=== PATIENT | male | born 1985 | race Caucasian/White ===

== ENCOUNTER 2018-01-02 13:06 | Inpatient (IN) | payer OTHER, SELFPAY ==
[2018-01-02] VITALS (25 sets, daily range): BP systolic 91–156; BP diastolic 46–99; PULSE 64–100; RESP 12–17; TEMP 36.5–36.9; O2SAT 96–100; BMI 29.8; BMI 23.4
--- NOTE | 2018-01-02 11:55 | RAD_ITS ---
STUDY: X-RAY - ABDOMEN/PELVIS REASON FOR EXAM: Male, 32 years old. Orogastric tube placement. TECHNIQUE: Frontal abdomen. COMPARISON: None. FINDINGS: Orogastric tube is curled about within the gastric fundus. Lung bases clear with normal cardiac silhouette. Upper abdominal soft tissues unremarkable. Osseous structures exhibit no acute process. Old left-sided rib fractures. RAD/Abdomen Single View (Portable) IMPRESSION: The orogastric tube is coiled about within the gastric fundus. Electronically Signed: Mati Mccloud, at 15:04 EDT Tel , Service support ,
[2018-01-02] MEDS: Etomidate 20 MG/10 ML Vial IV (13:12)
[2018-01-02] MEDS: Rocuronium Bromide 50 MG/5 ML Vial 100 MG IV (13:12)
--- NOTE | 2018-01-02 13:16 | EKG12_ITS ---
Test Reason : OD Blood Pressure : / mmHG Vent. Rate : 094 BPM Atrial Rate : 094 BPM P-R Int : 156 ms QRS Dur : 094 ms QT Int : 386 ms P-R-T Axes : 057 095 062 degrees QTc Int : 482 ms Normal sinus rhythm Prolonged QT Abnormal ECG Confirmed by NEVAEH ANDRADE, MALU ([id number]), photographic editor KIERRA TONEY ([id number]) on 01/05/2018 3:11:23 PM Referred By: DEBRA Confirmed By:MALU HERRING MD
--- NOTE | 2018-01-02 13:16 | CT_ITS ---
STUDY: CT BRAIN WITHOUT CONTRAST REASON FOR EXAM: Male, 32 years old. Altered mental status, overdose, unresponsive, intubated. RADIATION DOSAGE (If Supplied By Facility): CTDIvol = ( 44.99 ) mGy, DLP = ( 812.98 ) mGycm TECHNIQUE: Transaxial CT imaging of the brain was performed without administration of intravenous contrast material. Coronal and sagittal 2-D MPR Individualized dose optimization techniques were used for this CT. COMPARISON: None. FINDINGS: Extracranial soft tissues including orbital contents exhibit no acute abnormality. Craniofacial osseous structures within the field of view exhibit no acute abnormality. Mild mucoperiosteal thickening in the bilateral anterior ethmoid sinuses, paranasal sinuses otherwise clear. Mastoid air cells and middle ear cavities clear. Normal size ventricles and extra-axial spaces for the patient's age. Normal pituitary, brainstem and cerebellum There is no acute intracranial bleed, mass or mass effect nor any specific evidence of acute territorial infarct. CT/Brain/Head without Contrast IMPRESSION: No acute intracranial process. Electronically Signed: Mati Mccloud, at 14:48 EDT Tel , Service support ,
--- NOTE | 2018-01-02 13:24 | ED.DCSUM_ITS ---
- ER Visit Summary Date of Service: 01/02/18 Chief Complaint: Suicide attempt History of Present Illness: The patient is a 32 M presents to the emergency department by zeus. Apparently, the patient had been voicing suicidal thoughts to his mother. The patient is on Seroquel and Xanax. She approximated that he took 47 0.5 mg Xanax this morning. She did call squad. He had also admitted to drinking. By the time maritza arrived, the patient did ambulate to the caught, but became increasingly obtunded in route. By the time he arrived here, the patient is significantly obtunded. He is nonverbal. He does not respond to painful stimuli. No other history is able to be gathered. He does have prior suicide attempt. The patient had actually left a suicide note. That said you got it, God. I am finally . Fuck you God. Physical Examination: Patient initially has a GCS of 6. He is no evidence of external trauma. His pupils are dilated but reactive. He has no gag reflex. Lung sounds are coarse. Abdomen is soft. Extremities show no edema. There is no rash. He has no evidence of self-inflicted wounds. Test Results: [] Emergency Department Course and Treatment: Patient presents markedly obtunded status post large ingestion of benzodiazepines and alcohol. He has no gag reflex. He is not protecting his airway. Decision was made to intubate the patient. The patient was intubated with an 8 oh tube. X-ray does confirm good tube placement. Screening labs are obtained which are unremarkable. I did obtain an ABG which was also unremarkable. His alcohol was elevated at 0.353. His tox is positive for benzodiazepines. I did discuss plan of care with Dr. Medina in the intensive care unit. He does agree with plan for admission to the ICU. Patient's acetaminophen and salicylate levels were both negative. His head CT was obtained. The patient will be admitted to the ICU. Treatment Plan: [] Disposition: Admission Impression: 1. Intentional overdose 2. Acute respiratory failure secondary to intentional overdose 3. Alcohol abuse This note was generated with [employer] software. It may contain incorrect words, spelling, and punctuation that were not noted in review of the chart prior to signing ED Disposition - Plan for ED Patient: Chief Complaint: Substance Abuse Referrals: Deonte Meneses DO [Primary Care Provider] -
--- NOTE | 2018-01-02 13:24 | NURSING ---
NO OLD EKGS
[2018-01-02 13:30] LABS: Absolute Lymphocyte Count 1.94 X10^3/ul (0.83-4.51); Absolute Neutrophil Count 1.6 X10^3/uL (2.0-7.7); Basophil# 0.06 X10^3/uL; Basophil% 1.5 % (0-1); Eosinophil# 0.06 X10^3/uL; Eosinophils% 1.5 % (0-5); Hematocrit 40.4 % (40-54); Hemoglobin 12.6 g/dl (13.0-16.5); Lymphocyte # 1.94 X10^3/ul (4.0); Mean Corp Hgb Conc 31.2 g/gl (32-36); Mean Corpuscular Volume 86.5 fL (80-94); Mean Platelet Vol. 8.8 fl (6.2-12.0); Monocyte% 5.2 % (0-10); Neutrophil # 1.62 X10^3/uL (2.7-7.7); Neutrophil % 41.8 % (47-70); POSITIVE COUNT NO; POSITIVE DIFFERENTIAL NO; POSITIVE MORPHOLOGY NO; Platelet Count 200 K/mm3 (150-450); RBC Distribution Width CV 15.2 % (11.6-14.6); RBC Distribution Width SD 47.8 fl (35.1-43.9); Red Blood Count 4.67 M/mm3 (4.6-6.2); White Blood Count 3.9 K/mm3 (4.4-11.0)
[2018-01-02 13:46] LABS: BUN 12 mg/dL (7-18); Creatinine, Serum 0.94 mg/dL (0.70-1.30); Glucose 94 mg/dL (74-106)
[2018-01-02 13:47] LABS: ALB/GLOB Ratio 1.3 RATIO (0.9-2.4); AST(SGOT) 32 U/L (15-37); Alanine Aminotransfer ALT/SGPT 47 U/L (16-61); Alkaline Phosphatase 49 U/L (45-117); Anion Gap 12 (5-15); BUN/Creat Ratio 12.8 RATIO (10-20); Calcium,Total 8.3 mg/dL (8.5-10.1); Chloride 101 mmol/L (98-107); EST Glomerular Filtration Rate 99 mL/min (>60); Est Glom Filt Rate - Afr Amer 119 mL/min (>60); Estimated Creatinine Clearance 122.68 ml/min; Potassium 3.7 mmol/L (3.5-5.1); Sodium Level 140 mmol/L (136-145)
[2018-01-02 13:55] LABS: Bacteria 0 SEEN /hpf (None Seen); Mucous, Urine 0 SEEN /hpf (<or=2+); Red Blood Cells-Urine 0 SEEN /hpf (0-5); Squamous Epithelial Cells - UA 0 SEEN /hpf (0-5); White Blood Cells 0 SEEN /hpf (0-5)
[2018-01-02] MEDS: 0.9% Normal Saline 1,000 ML 1000 ML IV (13:56)
[2018-01-02 13:59] LABS: Color, Urine Yellow (Yellow); Glucose, Dipstick Normal (Normal); Ketone-Dipstick Negative (Negative); Leukocyte Esterase-Dipstick Negative /ul (Negative); Nitrite-Dipstick Negative (Negative); Occult Blood-Urine Negative /ul (Negative); Protein-Dipstick Negative (Negative); Specific Gravity, Urine 1.005 (1.002-1.030); Urine Bilirubin Dipstick Negative (Negative); Urine Clarity Clear (Clear); Urine Urobilinogen Normal (Normal)
--- NOTE | 2018-01-02 14:05 | RAD_ITS ---
STUDY: X-RAY CHEST REASON FOR EXAM: Male, 32 years old. Cough, overdose endotracheal tube placement TECHNIQUE: Portable upright chest COMPARISON: None. FINDINGS: The endotracheal tube tip lies approximately 7 cm cephalad of the dmitriy. The orogastric tube is coiled about within the gastric fundus. The lungs are clear and expanded. Normal cardiomediastinal silhouette, lourdes and pleural margins. No acute osseous or upper abdominal process. RAD/Chest 1 View (Portable) IMPRESSION: No acute cardiopulmonary process. Electronically Signed: Mati Mccloud, at 15:05 EDT Tel , Service support ,
[2018-01-02 14:10] LABS: Base Excess 1 mmol/L (-2 to +2); Bicarbonate 27.4 mmol/L (22-26); Blood Gas Specimen Type ART; FI02 30; Mode A-C; O2 Delivery Device Vent; PEEP 5; PO2 116 mmHG (75-100); RR 12; SITE R Radial; SO2 98 % (95-99); Total Carbon Dioxide 29 mmol/L; Vt 500; pCO2 52.4 mmHg (35-45); pH 7.33 (7.35-7.45)
[2018-01-02] MEDS: Propofol 10MG/Ml 1,000 MG/100 ML Bottle 2.994 MG CONT INF ×2 (14:18→20:43)
[2018-01-02 14:29] LABS: Amphetamine Urine VISTA NEGATIVE (<1000 ng/mL); Barbiturate Urine VISTA NEGATIVE (< 200 ng/mL); Benzodiazepine Urine VISTA POSITIVE (< 200 ng/mL); Cocaine Urine VISTA NEGATIVE (< 300 ng/mL); Ecstacy Urine VISTA NEGATIVE (< 500 ng/mL); Methadone Urine VISTA NEGATIVE (< 300 ng/mL); PCP Urine VISTA NEGATIVE (< 25 ng/mL); THC Urine VISTA NEGATIVE (< 50 ng/mL); Vista UDS pH Range 6
[2018-01-02 14:32] LABS: Acetaminophen (Tylenol) Level < 2.0 ug/mL (10.0-30.0); Salicylate < 1.7 mg/dL (2.8-20.0)
--- NOTE | 2018-01-02 15:07 | PCM.HP.STD ---
Problem List (1) Suicide attempt Status: Acute (2) Benzodiazepine overdose Status: Acute Qualifiers: Encounter type: initial encounter (3) Alcohol intoxication Status: Acute Qualifiers: Complication of substance-induced condition: with unspecified complication Qualified Code(s): F10.929 - Alcohol use, unspecified with intoxication, unspecified (4) Alcohol abuse Status: Chronic (5) Depression with anxiety Status: Chronic (6) Chewing tobacco nicotine dependence Status: Chronic Qualifiers: Substance use status: unspecified nicotine-induced disorder Qualified Code(s): F17.229 - Nicotine dependence, chewing tobacco, with unspecified nicotine-induced disorders History of Present Illness Date of Admission: 01/02/18 Chief Complaint: Attempted suicide via overdose xanax, EtOH intoxication The patient is a 32 y/o M w/ PMHx: Anxiety and Depression, Prior Suicide Attempts and Ideation, EtOH Abuse (1 bottle vodka/day), Chew Tobacco (~ 1 can/day) who presents to the [facility] ED on 01/02/18 with history of ingestion of the 47 Xanax pills in addition to notable alcohol consumption in suicide attempt noted to also have written a letter stating goodbye and expressing his displeasure with God. Patient did contact his mother at time of ingestion and EMS was immediately called. Upon evaluation GCS 6 per EMS and upon presentation to the emergency room patient incoherent and unsafe airway requiring immediate intubation. The ED workup included T 97.8, heart rate 85, BP 104/70, respiratory rate 13, 98%, intubated with FiO2 30% CBC with WBC 3.9, heme globin 12.6, platelet 200, ABG with pH 7.33, bicarb 27.4, PCO2 52.4, PO2 116, CMP unremarkable, urinalysis unremarkable, UDS with positive benzodiazepines, alcohol level 353, CT brain with no acute intracranial process, chest x-ray with no acute cardiopulmonary process, intubated, OG in place. ED following intubation patient placed on propofol drip. Past Medical History Past Medical History (Chronic Problems): Chronic Problems Alcohol abuse (Chronic) Depression with anxiety (Chronic) Chewing tobacco nicotine dependence (Chronic) Allergies No Known Allergies Allergy (Verified 01/02/18 13:51) Home Medications: Ambulatory Orders Medication Instructions Recorded Alprazolam [Xanax] 0.5 mg PO BID PRN PRN 01/02/18 Citalopram Hydrobromide [Celexa] 20 mg PO DAILY 01/02/18 Perphenazine [Perphenazine] 4 mg PO BID 01/02/18 Perphenazine [Perphenazine] 8 mg PO QHS 01/02/18 Quetiapine Fumarate [Seroquel] 50 mg PO QHS 01/02/18 Surgical History: - - Appendectomy and right upper extremity surgery status post injury with hardware. Psychiatric History: Anxiety, Bipolar - Suspect patient is bipolar., Depression, Prior suicide attempt Lives: Alone Smoking Status: Never smoker Tobacco Use: Chew - Per family likely 1 can per day usage. Alcohol: Heavy - At least one bottle of vodka daily per family report. Drugs: None - *Family History Maternal History Items: - - Mother with a history of TIA, pernicious anemia and iron deficiency anemia. Paternal History Items: - - Father with a history of alcohol abuse and depression as well as suicide attempts. Review of Systems Unable to obtain accurate/complete ROS d/t: Unable to obtain ROS from patient secondary to intubated status. Comment: Family notes depression, anxiety, suicidal ideations ongoing and prior suicide attempts. VTE Information - Inpt Only VTE Present on Admission: No VTE Mechan Device Prophylaxis: SCD's VTE Pharm Prophylaxis ordered?: Yes Patient Problems: Active and Suspected Problems Suicide attempt (Acute) Benzodiazepine overdose (Acute) Alcohol intoxication (Acute) Subjective: Laying in the ED bed, intubated, sedated, currently no acute distress. Objective: Physical Examination: General: Sedated, not alert, unable to answer orientation questions, laying in the ED bed, currently no acute distress. Skin: normal color, turgor, no icterus, cyanosis. HEENT: AT/NC, EOM unable to be assessed, PERRLA, sluggish, dry MM, intubated, OG, no carotid bruits or JVD noted. Lungs: Symmetric BL rise, intubated, sedated, no rales, ronchi or wheezing. Heart: Regular rate and rhythm; no gallop, rub audible. Abdomen: soft, NTTP, ND, normal BS, + HM. Extremities: no cyanosis, clubbing, or edema. Neurological: Sedated, not alert, unable to answer orientation questions, laying in the ED bed, currently no acute distress; cognitive function not baseline intact; pupils equally reactive to light and accomodation; unable to assess CN, unable to assess strength given sedation. Psychiatric: affect appears flat, admitted with OD w/ suicide attempt, active history of anxiety and depression, uncontrolled. - Physical Exam Vital Signs Temp Pulse Resp BP Pulse Ox 97.8 F 77 13 94/50 L 98 01/02/18 13:07 01/02/18 15:05 01/02/18 15:05 01/02/18 15:05 01/02/18 15:05 Oxygen Flow Rate (L/min) 4 Oxygen Delivery Method Mechanical Ventilator Weight: 220 lb Body Mass Index (BMI) 29.8 Laboratory Tests Past 24 Hrs 01/02/18 01/02/18 01/02/18 13:15 13:15 13:15 WBC 3.9 L RBC 4.67 Hgb 12.6 L Hct 40.4 MCV 86.5 MCH 27.0 MCHC 31.2 L RDW 15.2 H RDW Differential 47.8 H Plt Count 200 MPV 8.8 Immature Gran % (Auto) 0.000 Neut % (Auto) 41.8 L Lymph % (Auto) 50.0 H [place] % (Auto) 5.2 Eos % (Auto) 1.5 Baso % (Auto) 1.5 H Absolute Neuts (auto) 1.6 L Absolute Lymphs (auto) 1.94 Total Counted Not Reportable Specimen Type Sample Site pH Bicarbonate Actual POC Total CO2 Base Excess O2 Saturation O2 % ABG pCO2 ABG pO2 Damien Test Respiration Rate O2 Delivery Device Vent Mode Tidal Volume POC PEEP Blood Gas Notified Whom Sodium 140 Potassium 3.7 Chloride 101 Carbon Dioxide 27.0 Anion Gap 12 BUN 12 Creatinine 0.94 Estim Creat Clear Calc 122.68 Est GFR (MDRD) Af Amer 119 Est GFR (MDRD) Non-Af 99 BUN/Creatinine Ratio 12.8 Glucose 94 Calcium 8.3 L Total Bilirubin 0.30 AST 32 ALT 47 Alkaline Phosphatase 49 Total Protein 7.0 Albumin 4.0 Globulin 3.0 Albumin/Globulin Ratio 1.3 Urine Color Urine Clarity Urine pH Ur Specific [place] Urine Protein Urine Glucose (UA) Urine Ketones Urine Occult Blood Urine Nitrite Urine Bilirubin Urine Urobilinogen Ur Leukocyte Esterase Urine RBC Urine WBC Ur Squamous Epith Cells Urine Bacteria Urine Mucus Salicylates Urine Opiates Screen Urine Methadone Screen Acetaminophen Ur Barbiturates Screen Ur Phencyclidine Scrn Ur Amphetamines Screen U Methamphetamin-MDMA U Benzodiazepines Scrn Urine Cocaine Screen U Cannabinoids Screen Ur Drug Screen Comment Ethyl Alcohol 353.0 H* 01/02/18 01/02/18 01/02/18 13:15 13:35 13:35 WBC RBC Hgb Hct MCV MCH MCHC RDW RDW Differential Plt Count MPV Immature Gran % (Auto) Neut % (Auto) Lymph % (Auto) [place]ac[place] % (Auto) Eos % (Auto) Baso % (Auto) Absolute Neuts (auto) Absolute Lymphs (auto) Total Counted Specimen Type Sample Site pH Bicarbonate Actual POC Total CO2 Base Excess O2 Saturation O2 % ABG pCO2 ABG pO2 Damien Test Respiration Rate O2 Delivery Device Vent Mode Tidal Volume POC PEEP Blood Gas Notified Whom Sodium Potassium Chloride Carbon Dioxide Anion Gap BUN Creatinine Estim Creat Clear Calc Est GFR (MDRD) Af Amer Est GFR (MDRD) Non-Af BUN/Creatinine Ratio Glucose Calcium Total Bilirubin AST ALT Alkaline Phosphatase Total Protein Albumin Globulin Albumin/Globulin Ratio Urine Color Yellow Urine Clarity Clear Urine pH 6.0 Ur Specific [place] 1.005 Urine Protein Negative Urine Glucose (UA) Normal Urine Ketones Negative Urine Occult Blood Negative Urine Nitrite Negative Urine Bilirubin Negative Urine Urobilinogen Normal Ur Leukocyte Esterase Negative Urine RBC 0 SEEN Urine WBC 0 SEEN Ur Squamous Epith Cells 0 SEEN Urine Bacteria 0 SEEN Urine Mucus 0 SEEN Salicylates < 1.7 L Urine Opiates Screen NEGATIVE Urine Methadone Screen NEGATIVE Acetaminophen < 2.0 L Ur Barbiturates Screen NEGATIVE Ur Phencyclidine Scrn NEGATIVE Ur Amphetamines Screen NEGATIVE U Methamphetamin-MDMA NEGATIVE U Benzodiazepines Scrn POSITIVE H Urine Cocaine Screen NEGATIVE U Cannabinoids Screen NEGATIVE Ur Drug Screen Comment Ethyl Alcohol 01/02/18 14:04 WBC RBC Hgb Hct MCV MCH MCHC RDW RDW Differential Plt Count MPV Immature Gran % (Auto) Neut % (Auto) Lymph % (Auto) [place] % (Auto) Eos % (Auto) Baso % (Auto) Absolute Neuts (auto) Absolute Lymphs (auto) Total Counted Specimen Type ART Sample Site R Radial pH 7.33 L Bicarbonate Actual 27.4 H POC Total CO2 29 Base Excess 1 O2 Saturation 98 O2 % 30 ABG pCO2 52.4 H ABG pO2 116 H Damien Test NA Respiration Rate 12 O2 Delivery Device Vent Vent Mode A-C Tidal Volume 500 POC PEEP 5 Blood Gas Notified Whom ED Sodium Potassium Chloride Carbon Dioxide Anion Gap BUN Creatinine Estim Creat Clear Calc Est GFR (MDRD) Af Amer Est GFR (MDRD) Non-Af BUN/Creatinine Ratio Glucose Calcium Total Bilirubin AST ALT Alkaline Phosphatase Total Protein Albumin Globulin Albumin/Globulin Ratio Urine Color Urine Clarity Urine pH Ur Specific [place] Urine Protein Urine Glucose (UA) Urine Ketones Urine Occult Blood Urine Nitrite Urine Bilirubin Urine Urobilinogen Ur Leukocyte Esterase Urine RBC Urine WBC Ur Squamous Epith Cells Urine Bacteria Urine Mucus Salicylates Urine Opiates Screen Urine Methadone Screen Acetaminophen Ur Barbiturates Screen Ur Phencyclidine Scrn Ur Amphetamines Screen U Methamphetamin-MDMA U Benzodiazepines Scrn Urine Cocaine Screen U Cannabinoids Screen Ur Drug Screen Comment Ethyl Alcohol Assessment/Plan All Active Problems Suicide attempt (Acute) Benzodiazepine overdose (Acute) Alcohol intoxication (Acute) The patient is a 32 y/o M w/ PMHx: Anxiety and Depression, Prior Suicide Attempts and Ideation, EtOH Abuse (1 bottle vodka/day), Chew Tobacco (~ 1 can/day) who presents to the [facility] ED on 01/02/18 with history of ingestion of the 47 Xanax pills in addition to notable alcohol consumption in suicide attempt noted to also have written a letter stating goodbye and expressing his displeasure with God. (1) Anxiety and Depression, Suspect Bipolar Disorder, Major, Uncontrolled w/ Suicide attempt by BZD Overdose w/ Acute Hypoxic Respiratory Failure: Intubated in the ED, maintained on propofol, will admit to the ICU, consult Dr. Medina ICU, likely will need addition of fentanyl versus alternate agent once short-acting BZD wear off secondary to severity of EtOH Abuse history, expect agitation, maintain on aggressive hydration w/ additional IVF bolus upon transition to ICU, repeat CXR in AM, ABG as needed and in AM per ICU discretion, obtain MRSA screen, maintain wen catheter, maintain restraints, aspiration precautions. Mag and phos pending. Repeat CBC, CMP in AM. Once extubated will need crisis evaluation w/ transition to Inpatient psychiatric facility. May need treatment for EtOH withdrawal prior to this transition given severity of his intake history. (2) EtOH Abuse: Patient w/ routine consumption of 1 bottle vodka per day. Will maintain on CIWA protocol, MVI, thiamine and folic acid. Given history and presentation, likely will need transition once extubated to librium w/ taper especially given need for psychiatric facility placement. Mag and phos pending. May need to transition to precedex if statu severe. ICU consulted as noted. (3) Prolonged QT: Admission EKG w/ SR with QT/QTc 386/482, repeat EKG in AM, maintain on telemetry. (4) Chew Tobacco Abuse: Encouraged cessation, inpatient consultation per RT, NR if desired. (5) Normocytic Anemia, Unclear if Chronic: Admission Hgb 12.6, MCV 86.5, hydrating with #1, repeat CBC in AM. (6) GI Prophylaxis: Famotidine. (7) DVT Prophylaxis: SCDs, lovenox. Code Visit Inpatient E&M: [id number] Init Hosp L3
--- NOTE | 2018-01-02 15:11 | HP.PCM_ITS ---
Problem List (1) Suicide attempt Status: Acute (2) Benzodiazepine overdose Status: Acute Qualifiers: Encounter type: initial encounter (3) Alcohol intoxication Status: Acute Qualifiers: Complication of substance-induced condition: with unspecified complication Qualified Code(s): F10.929 - Alcohol use, unspecified with intoxication, unspecified (4) Alcohol abuse Status: Chronic (5) Depression with anxiety Status: Chronic (6) Chewing tobacco nicotine dependence Status: Chronic Qualifiers: Substance use status: unspecified nicotine-induced disorder Qualified Code( s): F17.229 - Nicotine dependence, chewing tobacco, with unspecified nicotine- induced disorders History of Present Illness Date of Admission: 01/02/18 Chief Complaint: Attempted suicide via overdose xanax, EtOH intoxication The patient is a 32 y/o M w/ PMHx: Anxiety and Depression, Prior Suicide Attempts and Ideation, EtOH Abuse (1 bottle vodka/day), Chew Tobacco (~ 1 can/ day) who presents to the [facility] ED on 01/02/18 with history of ingestion of the 47 Xanax pills in addition to notable alcohol consumption in suicide attempt noted to also have written a letter stating goodbye and expressing his displeasure with God. Patient did contact his mother at time of ingestion and EMS was immediately called. Upon evaluation GCS 6 per EMS and upon presentation to the emergency room patient incoherent and unsafe airway requiring immediate intubation. The ED workup included T 97.8, heart rate 85, BP 104/70, respiratory rate 13, 98%, intubated with FiO2 30% CBC with WBC 3.9, heme globin 12.6, platelet 200, ABG with pH 7.33, bicarb 27.4, PCO2 52.4, PO2 116, CMP unremarkable, urinalysis unremarkable, UDS with positive benzodiazepines, alcohol level 353, CT brain with no acute intracranial process, chest x-ray with no acute cardiopulmonary process, intubated, OG in place. ED following intubation patient placed on propofol drip. Past Medical History Past Medical History (Chronic Problems): Chronic Problems Alcohol abuse (Chronic) Depression with anxiety (Chronic) Chewing tobacco nicotine dependence (Chronic) Allergies No Known Allergies Allergy (Verified 01/02/18 13:51) Home Medications: Ambulatory Orders Medication Instructions Recorded Alprazolam [Xanax] 0.5 mg PO BID PRN PRN 01/02/18 Citalopram Hydrobromide [Celexa] 20 mg PO DAILY 01/02/18 Perphenazine [Perphenazine] 4 mg PO BID 01/02/18 Perphenazine [Perphenazine] 8 mg PO QHS 01/02/18 Quetiapine Fumarate [Seroquel] 50 mg PO QHS 01/02/18 Surgical History: - - Appendectomy and right upper extremity surgery status post injury with hardware. Psychiatric History: Anxiety, Bipolar - Suspect patient is bipolar., Depression , Prior suicide attempt Lives: Alone Smoking Status: Never smoker Tobacco Use: Chew - Per family likely 1 can per day usage. Alcohol: Heavy - At least one bottle of vodka daily per family report. Drugs: None - *Family History Maternal History Items: - - Mother with a history of TIA, pernicious anemia and iron deficiency anemia. Paternal History Items: - - Father with a history of alcohol abuse and depression as well as suicide attempts. Review of Systems Unable to obtain accurate/complete ROS d/t: Unable to obtain ROS from patient secondary to intubated status. Comment: Family notes depression, anxiety, suicidal ideations ongoing and prior suicide attempts. VTE Information - Inpt Only VTE Present on Admission: No VTE Mechan Device Prophylaxis: SCD's VTE Pharm Prophylaxis ordered?: Yes Patient Problems: Active and Suspected Problems Suicide attempt (Acute) Benzodiazepine overdose (Acute) Alcohol intoxication (Acute) Subjective: Laying in the ED bed, intubated, sedated, currently no acute distress. Objective: Physical Examination: General: Sedated, not alert, unable to answer orientation questions, laying in the ED bed, currently no acute distress. Skin: normal color, turgor, no icterus, cyanosis. HEENT: AT/NC, EOM unable to be assessed, PERRLA, sluggish, dry MM, intubated, OG , no carotid bruits or JVD noted. Lungs: Symmetric BL rise, intubated, sedated, no rales, ronchi or wheezing. Heart: Regular rate and rhythm; no gallop, rub audible. Abdomen: soft, NTTP, ND, normal BS, + HM. Extremities: no cyanosis, clubbing, or edema. Neurological: Sedated, not alert, unable to answer orientation questions, laying in the ED bed, currently no acute distress; cognitive function not baseline intact; pupils equally reactive to light and accomodation; unable to assess CN, unable to assess strength given sedation. Psychiatric: affect appears flat, admitted with OD w/ suicide attempt, active history of anxiety and depression, uncontrolled. - Physical Exam Vital Signs Temp Pulse Resp BP Pulse Ox 97.8 F 77 13 94/50 L 98 01/02/18 13:07 01/02/18 15:05 01/02/18 15:05 01/02/18 15:05 01/02/18 15:05 Oxygen Flow Rate (L/min) 4 Oxygen Delivery Method Mechanical Ventilator Weight: 220 lb Body Mass Index (BMI) 29.8 Laboratory Tests Past 24 Hrs 01/02/18 01/02/18 01/02/18 13:15 13:15 13:15 WBC 3.9 L RBC 4.67 Hgb 12.6 L Hct 40.4 MCV 86.5 MCH 27.0 MCHC 31.2 L RDW 15.2 H RDW Differential 47.8 H Plt Count 200 MPV 8.8 Immature Gran % (Auto) 0.000 Neut % (Auto) 41.8 L Lymph % (Auto) 50.0 H Wilkin % (Auto) 5.2 Eos % (Auto) 1.5 Baso % (Auto) 1.5 H Absolute Neuts (auto) 1.6 L Absolute Lymphs (auto) 1.94 Total Counted Not Reportable Specimen Type Sample Site pH Bicarbonate Actual POC Total CO2 Base Excess O2 Saturation O2 % ABG pCO2 ABG pO2 Damien Test Respiration Rate O2 Delivery Device Vent Mode Tidal Volume POC PEEP Blood Gas Notified Whom Sodium 140 Potassium 3.7 Chloride 101 Carbon Dioxide 27.0 Anion Gap 12 BUN 12 Creatinine 0.94 Estim Creat Clear Calc 122.68 Est GFR (MDRD) Af Amer 119 Est GFR (MDRD) Non-Af 99 BUN/Creatinine Ratio 12.8 Glucose 94 Calcium 8.3 L Total Bilirubin 0.30 AST 32 ALT 47 Alkaline Phosphatase 49 Total Protein 7.0 Albumin 4.0 Globulin 3.0 Albumin/Globulin Ratio 1.3 Urine Color Urine Clarity Urine pH Ur Specific [place] Urine Protein Urine Glucose (UA) Urine Ketones Urine Occult Blood Urine Nitrite Urine Bilirubin Urine Urobilinogen Ur Leukocyte Esterase Urine RBC Urine WBC Ur Squamous Epith Cells Urine Bacteria Urine Mucus Salicylates Urine Opiates Screen Urine Methadone Screen Acetaminophen Ur Barbiturates Screen Ur Phencyclidine Scrn Ur Amphetamines Screen U Methamphetamin-MDMA U Benzodiazepines Scrn Urine Cocaine Screen U Cannabinoids Screen Ur Drug Screen Comment Ethyl Alcohol 353.0 H* 01/02/18 01/02/18 01/02/18 13:15 13:35 13:35 WBC RBC Hgb Hct MCV MCH MCHC RDW RDW Differential Plt Count MPV Immature Gran % (Auto) Neut % (Auto) Lymph % (Auto) Wilkin % (Auto) Eos % (Auto) Baso % (Auto) Absolute Neuts (auto) Absolute Lymphs (auto) Total Counted Specimen Type Sample Site pH Bicarbonate Actual POC Total CO2 Base Excess O2 Saturation O2 % ABG pCO2 ABG pO2 Damien Test Respiration Rate O2 Delivery Device Vent Mode Tidal Volume POC PEEP Blood Gas Notified Whom Sodium Potassium Chloride Carbon Dioxide Anion Gap BUN Creatinine Estim Creat Clear Calc Est GFR (MDRD) Af Amer Est GFR (MDRD) Non-Af BUN/Creatinine Ratio Glucose Calcium Total Bilirubin AST ALT Alkaline Phosphatase Total Protein Albumin Globulin Albumin/Globulin Ratio Urine Color Yellow Urine Clarity Clear Urine pH 6.0 Ur Specific [place] 1.005 Urine Protein Negative Urine Glucose (UA) Normal Urine Ketones Negative Urine Occult Blood Negative Urine Nitrite Negative Urine Bilirubin Negative Urine Urobilinogen Normal Ur Leukocyte Esterase Negative Urine RBC 0 SEEN Urine WBC 0 SEEN Ur Squamous Epith Cells 0 SEEN Urine Bacteria 0 SEEN Urine Mucus 0 SEEN Salicylates < 1.7 L Urine Opiates Screen NEGATIVE Urine Methadone Screen NEGATIVE Acetaminophen < 2.0 L Ur Barbiturates Screen NEGATIVE Ur Phencyclidine Scrn NEGATIVE Ur Amphetamines Screen NEGATIVE U Methamphetamin-MDMA NEGATIVE U Benzodiazepines Scrn POSITIVE H Urine Cocaine Screen NEGATIVE U Cannabinoids Screen NEGATIVE Ur Drug Screen Comment Ethyl Alcohol 01/02/18 14:04 WBC RBC Hgb Hct MCV MCH MCHC RDW RDW Differential Plt Count MPV Immature Gran % (Auto) Neut % (Auto) Lymph % (Auto) Wilkin % (Auto) Eos % (Auto) Baso % (Auto) Absolute Neuts (auto) Absolute Lymphs (auto) Total Counted Specimen Type ART Sample Site R Radial pH 7.33 L Bicarbonate Actual 27.4 H POC Total CO2 29 Base Excess 1 O2 Saturation 98 O2 % 30 ABG pCO2 52.4 H ABG pO2 116 H Damien Test NA Respiration Rate 12 O2 Delivery Device Vent Vent Mode A-C Tidal Volume 500 POC PEEP 5 Blood Gas Notified Whom ED Sodium Potassium Chloride Carbon Dioxide Anion Gap BUN Creatinine Estim Creat Clear Calc Est GFR (MDRD) Af Amer Est GFR (MDRD) Non-Af BUN/Creatinine Ratio Glucose Calcium Total Bilirubin AST ALT Alkaline Phosphatase Total Protein Albumin Globulin Albumin/Globulin Ratio Urine Color Urine Clarity Urine pH Ur Specific [place] Urine Protein Urine Glucose (UA) Urine Ketones Urine Occult Blood Urine Nitrite Urine Bilirubin Urine Urobilinogen Ur Leukocyte Esterase Urine RBC Urine WBC Ur Squamous Epith Cells Urine Bacteria Urine Mucus Salicylates Urine Opiates Screen Urine Methadone Screen Acetaminophen Ur Barbiturates Screen Ur Phencyclidine Scrn Ur Amphetamines Screen U Methamphetamin-MDMA U Benzodiazepines Scrn Urine Cocaine Screen U Cannabinoids Screen Ur Drug Screen Comment Ethyl Alcohol Assessment/Plan All Active Problems Suicide attempt (Acute) Benzodiazepine overdose (Acute) Alcohol intoxication (Acute) The patient is a 32 y/o M w/ PMHx: Anxiety and Depression, Prior Suicide Attempts and Ideation, EtOH Abuse (1 bottle vodka/day), Chew Tobacco (~ 1 can/ day) who presents to the [facility] ED on 01/02/18 with history of ingestion of the 47 Xanax pills in addition to notable alcohol consumption in suicide attempt noted to also have written a letter stating goodbye and expressing his displeasure with God. (1) Anxiety and Depression, Suspect Bipolar Disorder, Major, Uncontrolled w/ Suicide attempt by BZD Overdose w/ Acute Hypoxic Respiratory Failure: Intubated in the ED, maintained on propofol, will admit to the ICU, consult Dr. Medina ICU , likely will need addition of fentanyl versus alternate agent once short- acting BZD wear off secondary to severity of EtOH Abuse history, expect agitation, maintain on aggressive hydration w/ additional IVF bolus upon transition to ICU, repeat CXR in AM, ABG as needed and in AM per ICU discretion , obtain MRSA screen, maintain wen catheter, maintain restraints, aspiration precautions. Mag and phos pending. Repeat CBC, CMP in AM. Once extubated will need crisis evaluation w/ transition to Inpatient psychiatric facility. May need treatment for EtOH withdrawal prior to this transition given severity of his intake history. (2) EtOH Abuse: Patient w/ routine consumption of 1 bottle vodka per day. Will maintain on CIWA protocol, MVI, thiamine and folic acid. Given history and presentation, likely will need transition once extubated to librium w/ taper especially given need for psychiatric facility placement. Mag and phos pending. May need to transition to precedex if statu severe. ICU consulted as noted. (3) Prolonged QT: Admission EKG w/ SR with QT/QTc 386/482, repeat EKG in AM, maintain on telemetry. (4) Chew Tobacco Abuse: Encouraged cessation, inpatient consultation per RT, NR if desired. (5) Normocytic Anemia, Unclear if Chronic: Admission Hgb 12.6, MCV 86.5, hydrating with #1, repeat CBC in AM. (6) GI Prophylaxis: Famotidine. (7) DVT Prophylaxis: SCDs, lovenox. Code Visit Inpatient E&M: 04324 Init Hosp L3
--- NOTE | 2018-01-02 15:27 | NURSING ---
ICU RESP FAILURE, SUICIDE ATTEMPT WHITE
--- NOTE | 2018-01-02 15:52 | NURSING ---
ICU 1
--- NOTE | 2018-01-02 16:40 | RAD_ITS ---
STUDY: X-RAY CHEST REASON FOR EXAM: Male, 32 years old. Intubation, orogastric tube placement, overdose. TECHNIQUE: Portable semierect AP chest COMPARISON: 01/02/2018 FINDINGS: The orogastric tube has been straightened out, the tip lying off the [id number] in the region of the distal stomach, the proximal port in the fundus. Endotracheal tube tip lies approximately 4.5 cm cephalad of the dmitriy. The lungs are clear and expanded. Normal cardiomediastinal silhouette, lourdes and pleural margins. No acute osseous or upper abdominal process. RAD/Chest 1 View (Portable) IMPRESSION: No acute cardiopulmonary process. Lines and tubes as detailed above. Electronically Signed: Mati Mccloud, at 17:41 EDT Tel , Service support ,
[2018-01-02] MEDS: 0.9% Normal Saline 1,000 ML 999 ML IV (17:30)
[2018-01-02] MEDS: Chlorhexidine 15 ML PO ×2 (18:06→22:32)
[2018-01-02 18:23] LABS: Magnesium 2.4 mg/dL (1.6-2.6); Phosphorus 3.5 mg/dL (2.5-4.9)
[2018-01-02] MEDS: 0.9% Normal Saline 1,000 ML 150 ML IV (18:35)
[2018-01-02 19:01] LABS: Allen Test POS; Base Excess 1 mmol/L (-2 to +2); Bicarbonate 26.6 mmol/L (22-26); Blood Gas Specimen Type ART; FI02 30; Mode A-C; O2 Delivery Device Vent; PEEP 5; PO2 125 mmHG (75-100); RR 12; SITE R Radial; SO2 98 % (95-99); Time Given 1855; Total Carbon Dioxide 28 mmol/L; Vt 500; pCO2 51.1 mmHg (35-45); pH 7.33 (7.35-7.45)
[2018-01-02] MEDS: Albuterol 2.5 MG/3 ML VIAL.NEB. INHALATION ×2 (19:02→23:00)
[2018-01-02 19:08] LABS: M R Staph aureus DNA By PCR Negative (Negative); Probe Check PASS; Specimen Processing Control PASS
[2018-01-02] MEDS: Famotidine 20 MG Tablet GT (22:33)
[2018-01-03] VITALS (35 sets, daily range): BP systolic 93–121; BP diastolic 45–74; PULSE 49–83; RESP 12–19; TEMP 36.8–37.3; O2SAT 99–100
[2018-01-03] MEDS: Albuterol 2.5 MG/3 ML VIAL.NEB. INHALATION (03:50)
[2018-01-03] MEDS: Propofol 10MG/Ml 1,000 MG/100 ML Bottle 2.994 MG CONT INF ×4 (03:57→21:19)
[2018-01-03] MEDS: 0.9% Normal Saline 1,000 ML 150 ML IV ×4 (03:58→21:19)
[2018-01-03] MEDS: CHLORHEXIDINE GLUC 2% CLOTH 1 EACH TOWELETTE TOPICAL (03:58)
[2018-01-03 04:57] LABS: Absolute Lymphocyte Count 1.91 X10^3/ul (0.83-4.51); Absolute Neutrophil Count 6.9 X10^3/uL (2.0-7.7); Basophil# 0.03 X10^3/uL; Basophil% 0.3 % (0-1); Eosinophil# 0.21 X10^3/uL; Eosinophils% 2.1 % (0-5); Hematocrit 38.1 % (40-54); Hemoglobin 12.4 g/dl (13.0-16.5); Lymphocyte # 1.91 X10^3/ul (4.0); Lymphocyte % 19.2 % (19-41); Mean Corp Hgb Conc 32.5 g/gl (32-36); Mean Corpuscular Hgb 28.4 pg (27.0-32.0); Mean Corpuscular Volume 87.4 fL (80-94); Mean Platelet Vol. 8.9 fl (6.2-12.0); Monocyte% 9.1 % (0-10); Neutrophil # 6.86 X10^3/uL (2.7-7.7); Neutrophil % 69.1 % (47-70); POSITIVE COUNT NO; POSITIVE DIFFERENTIAL NO; POSITIVE MORPHOLOGY NO; Platelet Count 217 K/mm3 (150-450); RBC Distribution Width CV 15.4 % (11.6-14.6); RBC Distribution Width SD 48.8 fl (35.1-43.9); Red Blood Count 4.36 M/mm3 (4.6-6.2); White Blood Count 9.9 K/mm3 (4.4-11.0)
[2018-01-03 05:27] LABS: ALB/GLOB Ratio 1.3 RATIO (0.9-2.4); AST(SGOT) 29 U/L (15-37); Alanine Aminotransfer ALT/SGPT 41 U/L (16-61); Albumin, Serum 3.6 g/dL (3.2-5.0); Alkaline Phosphatase 45 U/L (45-117); Anion Gap 10 (5-15); BUN 14 mg/dL (7-18); BUN/Creat Ratio 12.4 RATIO (10-20); Chloride 111 mmol/L (98-107); Creatinine, Serum 1.13 mg/dL (0.70-1.30); EST Glomerular Filtration Rate 79 mL/min (>60); Est Glom Filt Rate - Afr Amer 96 mL/min (>60); Estimated Creatinine Clearance 102.06 ml/min; Globulin 2.8 g/dL (2.2-4.2); Glucose 73 mg/dL (74-106); Potassium 3.8 mmol/L (3.5-5.1); Protein, Total 6.4 g/dL (6.4-8.2); Sodium Level 145 mmol/L (136-145)
--- NOTE | 2018-01-03 05:55 | EKG12_ITS ---
Test Reason : AM EKG Blood Pressure : / mmHG Vent. Rate : 073 BPM Atrial Rate : 073 BPM P-R Int : 130 ms QRS Dur : 094 ms QT Int : 416 ms P-R-T Axes : 008 088 063 degrees QTc Int : 458 ms Normal sinus rhythm Normal ECG No previous ECGs available Confirmed by NEVAEH ANDRADE, MALU ([id number]), clinical editor KIERRA TONEY ([id number]) on 01/07/2018 3:32:17 PM Referred By: MELONY Confirmed By:MALU HERRING MD
--- NOTE | 2018-01-03 06:43 | PCM.CON.CC ---
Reason for Consult Date of Consultation: 01/03/18 Reason for Consultation: Acute respiratory failure History of Present Illness: The patient is a 32-year-old male, with a history as outlined below, who presented to the emergency department on January 02 via EMS following an intentional overdose of approximately 47 0.5 mg tablets of Xanax. The patient also has a reported history of long-standing alcohol dependence. History pertinent to his hospitalization was obtained via chart review, as the patient is currently intubated and sedated. The patient reportedly drinks approximately 1 bottle of vodka daily. The ED provider did report to me that the patient was initially coherent and was able to ambulate to the stretcher for transportation to the emergency department. However, en route, the patient became less responsive and presented to the emergency department with a GCS score of 6. On arrival, the patient was noted to be afebrile and hemodynamically stable. The patient did have an ethyl alcohol level of 353 and a positive toxicology screen for benzodiazepines. Given that the patient was obtunded, he was emergently intubated in the emergency department for airway protection. Head CT revealed no acute intracranial process. Plain film chest x-ray revealed no acute cardiopulmonary process. The patient was subsequently transferred to the medical intensive care unit for ongoing management. Past Medical History Past Medical History (Chronic Problems): Chronic Problems Alcohol abuse (Chronic) Depression with anxiety (Chronic) Chewing tobacco nicotine dependence (Chronic) Allergies No Known Allergies Allergy (Verified 01/02/18 13:51) Home Medications: Ambulatory Orders Medication Instructions Recorded Alprazolam [Xanax] 0.5 mg PO BID PRN PRN 01/02/18 Citalopram Hydrobromide [Celexa] 20 mg PO DAILY 01/02/18 Perphenazine [Perphenazine] 4 mg PO BID 01/02/18 Perphenazine [Perphenazine] 8 mg PO QHS 01/02/18 Quetiapine Fumarate [Seroquel] 50 mg PO QHS 01/02/18 Surgical History: - - Appendectomy and right upper extremity surgery status post injury with hardware. Psychiatric History: Anxiety, Bipolar - Suspect patient is bipolar., Depression, Prior suicide attempt Lives: Alone Smoking Status: Never smoker Tobacco Use: Chew - Per family likely 1 can per day usage. Alcohol: Heavy - At least one bottle of vodka daily per family report. Drugs: None - *Family History Maternal History Items: - - Mother with a history of TIA, pernicious anemia and iron deficiency anemia. Paternal History Items: - - Father with a history of alcohol abuse and depression as well as suicide attempts. Review of Systems Unable to obtain accurate/complete ROS d/t: Due to current intubation and mechanical ventilation status. Patient Problems: Active and Suspected Problems Suicide attempt (Acute) Benzodiazepine overdose (Acute) Alcohol intoxication (Acute) Objective: The patient's most recent lab work, culture data and imaging studies have all been personally reviewed. - Physical Exam General: - - Intubated, sedated and mechanically ventilated. No ventilator dyssynchrony noted. HEENT: Atraumatic, PERRLA, Normocephalic Oral: No Gingival or Mucosal Lesions/ Ulcerations, - - Endotracheal and OG tubes in place. Neck: Supple, No Nodes, Trachea Midline Lungs: - - Clear across anterior lung lyman without appreciable wheezes, rales or rhonchi. Cardiovascular: Regular rate, Regular Rhythm, Normal S1, Normal S2, No murmurs Abdomen: Bowel Sounds Present, Soft, Non Tender Extremities: No clubbing, No cyanosis, No edema Skin: No breakdown, - - Tattoos present Musculoskeletal: No Tenderness to Palpation of Joints or Extremities, No Muscle Wasting Lymphatic: No Cervical, Supraclavicular, or Inguinal Adenopathy Neurological: - - No focal neurological deficits. Moves all extremities spontaneously. Becomes increasingly agitated with any form of stimulation. Psych/Mental Status: Agitated, Restless Vital Signs Temp Pulse Resp BP Pulse Ox 98.6 F 72 14 121/71 H 99 01/03/18 05:00 01/03/18 06:00 01/03/18 06:00 01/03/18 06:00 01/03/18 06:00 Oxygen Delivery Method Mechanical Ventilator Weight: 174 lb 9.698 oz Body Mass Index (BMI) 23.4 Intake and Output for Last 24 Hours 01/01/18 01/02/18 01/03/18 23:59 23:59 23:59 Intake Total 2147.7 / 2147.7 1432.1 / 1432.1 Output Total 850 / 850 375 / 375 Balance 1297.7 / 1297.7 1057.1 / 1057.1 Laboratory Tests Past 24 Hrs 01/02/18 01/02/18 01/03/18 17:25 18:57 04:45 WBC 9.9 RBC 4.36 L Hgb 12.4 L Hct 38.1 L MCV 87.4 MCH 28.4 MCHC 32.5 RDW 15.4 H RDW Differential 48.8 H Plt Count 217 MPV 8.9 Immature Gran % (Auto) 0.200 Neut % (Auto) 69.1 Lymph % (Auto) 19.2 Divide % (Auto) 9.1 Eos % (Auto) 2.1 Baso % (Auto) 0.3 Absolute Neuts (auto) 6.9 Absolute Lymphs (auto) 1.91 Total Counted Not Reportable Specimen Type ART Sample Site R Radial pH 7.33 L Bicarbonate Actual 26.6 H POC Total CO2 28 Base Excess 1 O2 Saturation 98 O2 % 30 ABG pCO2 51.1 H ABG pO2 125 H Damien Test POS Respiration Rate 12 O2 Delivery Device Vent Minute Volume 5.00 Vent Mode A-C Tidal Volume 500 POC PEEP 5 Blood Gas Notified Whom [facility] MD Blood Gas Notified Time 1855 Sodium Potassium Chloride Carbon Dioxide Anion Gap BUN Creatinine Estim Creat Clear Calc Est GFR (MDRD) Af Amer Est GFR (MDRD) Non-Af BUN/Creatinine Ratio Glucose Calcium Total Bilirubin AST ALT Alkaline Phosphatase Total Protein Albumin Globulin Albumin/Globulin Ratio MRSA (PCR) Negative 01/03/18 04:45 WBC RBC Hgb Hct MCV MCH MCHC RDW RDW Differential Plt Count MPV Immature Gran % (Auto) Neut % (Auto) Lymph % (Auto) Divide % (Auto) Eos % (Auto) Baso % (Auto) Absolute Neuts (auto) Absolute Lymphs (auto) Total Counted Specimen Type Sample Site pH Bicarbonate Actual POC Total CO2 Base Excess O2 Saturation O2 % ABG pCO2 ABG pO2 Damien Test Respiration Rate O2 Delivery Device Minute Volume Vent Mode Tidal Volume POC PEEP Blood Gas Notified Whom Blood Gas Notified Time Sodium 145 Potassium 3.8 Chloride 111 H Carbon Dioxide 24.0 Anion Gap 10 BUN 14 Creatinine 1.13 Estim Creat Clear Calc 102.06 Est GFR (MDRD) Af Amer 96 Est GFR (MDRD) Non-Af 79 BUN/Creatinine Ratio 12.4 Glucose 73 L Calcium 8.0 L Total Bilirubin 0.40 AST 29 ALT 41 Alkaline Phosphatase 45 Total Protein 6.4 Albumin 3.6 Globulin 2.8 Albumin/Globulin Ratio 1.3 MRSA (PCR) Clinical Impression(s) from Imaging Studies KUB X-Ray 01/02/18 11:55 IMPRESSION: The orogastric tube is coiled about within the gastric fundus. Electronically Signed: Mati Mccloud, at 15:04 EDT Tel , Service support , Brain CT 01/02/18 13:16 IMPRESSION: No acute intracranial process. Electronically Signed: Mati Schmittney, at 14:48 EDT Tel , Service support , Chest X-Ray 01/02/18 14:05 IMPRESSION: No acute cardiopulmonary process. Electronically Signed: Mati Mccloud, at 15:05 EDT Tel , Service support , Chest X-Ray 01/02/18 16:40 IMPRESSION: No acute cardiopulmonary process. Lines and tubes as detailed above. Electronically Signed: Mati Mccloud, at 17:41 EDT Tel , Service support , Assessment/Plan Active and Suspected Problems Suicide attempt (Acute) Benzodiazepine overdose (Acute) Alcohol intoxication (Acute) RECOMMENDATIONS: 1. Discontinue Librium, as the patient is on propofol and fentanyl. 2. Continue as needed Ativan 3. Continue thiamine and folate 4. Continue supplemental IV fluids, until tube feeds are initiated. 5. Continue appropriate ICU prophylaxis 6. Behavioral health evaluation, once medically stabilized. IMPRESSIONS: 1. Acute respiratory failure The patient was intubated in the emergency department upon arrival due to depressed GCS and concern for airway protection. His ventilator requirements are minimal with no acute cardiopulmonary process noted on chest imaging. Recommend continuing current supportive measures along with propofol and fentanyl for sedation, as the patient appears to be experiencing some of the early stages of potential withdrawal. Will obtain nutrition consult for recommendations regarding tube feeds. 2. Encephalopathy Secondary to intentional benzodiazepine overdose coupled with acute alcohol intoxication. Improving at this time. We will continue current sedation regimen with a goal to maintain a RASS of -1 to 1. 3. Intentional overdose/suicide attempt with history of alcohol dependence The patient is currently pink slipped and will require behavioral health evaluation, once medically stabilized. Continue to monitor for signs of alcohol withdrawal. Continue thiamine and folate as ordered. 4. History of tobacco dependence The patient reportedly chews tobacco as an outpatient. Cessation is advisable. Nicotine replacement therapy can be utilized, if clinically indicated. TIME: 38 minutes of critical care time, independent of procedures, was spent addressing the patient's acute respiratory failure, encephalopathy, intentional overdose/suicide attempt, alcohol dependence with withdrawal, review of all data and collaboration with the care team. ([id number]) Code Visit 9xxxx: 11950 Critical care first hour
--- NOTE | 2018-01-03 06:44 | PCM.PN.HOSP ---
Patient Problems: Active and Suspected Problems Suicide attempt (Acute) Benzodiazepine overdose (Acute) Alcohol intoxication (Acute) Subjective: ICU staff noting patient increasingly agitated overnight but ongoing usage of propofol and fentanyl drip. Patient with severe alcohol consumption history and following discussions with ICU staff, librium taper initiated with improvement following. Patient does awaken and is s/p recent librium dosing with more relaxed demeanor, able to answer yes, no questions with head noding. Patient denies fevers, chills, nausea, emesis, abdominal pain, chest pain or dyspnea. Patient eager for extubation which was discussed but current plan per discussion with lathe set up person to maintain intubated status given severity of alcohol abuse history and concern for severe withdrawal symptoms. Objective: Physical Examination: General: awake, alert, currently calm and recent Librium taper initiation, able to answer questions with yes and no with head nod, no acute distress currently, remains intubated and sedated in the ICU. Skin: Normal color, turgor, no icterus, cyanosis. HEENT: AT/NC, EOMI, PERRLA, sedation ongoing w/ intubated status, mildly dry MM. Lungs: Symmetric BL rise, intubated, sedated, no rales, ronchi or wheezing. Heart: Regular rate and rhythm; no gallop, rub audible. Abdomen: soft, NTTP, ND, normal BS. Extremities: no cyanosis, clubbing, or edema. Neurological: awake, alert, currently calm and recent Librium taper initiation, able to answer questions with yes and no with head nod; cognitive function improving, still not baseline intact; pupils equally reactive to light and accomodation; sedated, CN able to be tested appear intact, strength difficult to assess given status. Psychiatric: affect appears calm currently, prior severely agitated despite sedation, recent suicide attempt. Vitals/I&O's: Vital Signs Temp Pulse Resp BP Pulse Ox 98.6 F 72 14 121/71 H 99 01/03/18 05:00 01/03/18 06:00 01/03/18 06:00 01/03/18 06:00 01/03/18 06:00 Oxygen Delivery Method Mechanical Ventilator Weight: 174 lb 9.698 oz Body Mass Index (BMI) 23.4 Intake and Output for Last 24 Hours 01/01/18 01/02/18 01/03/18 23:59 23:59 23:59 Intake Total 2147.7 / 2147.7 1432.1 / 1432.1 Output Total 850 / 850 375 / 375 Balance 1297.7 / 1297.7 1057.1 / 1057.1 Laboratory Results 01/02/18 17:25: MRSA (PCR) Negative 01/02/18 18:57: Specimen Type ART, Sample Site R Radial, pH 7.33 L, Bicarbonate Actual 26.6 H, POC Total CO2 28, Base Excess 1, O2 Saturation 98, O2 % 30, ABG pCO2 51.1 H, ABG pO2 125 H, Damien Test POS, Respiration Rate 12, O2 Delivery Device Vent, Minute Volume 5.00, Vent Mode A-C, Tidal Volume 500, POC PEEP 5, Blood Gas Notified Whom [facility] , Blood Gas Notified Time 1855 01/03/18 04:45: WBC 9.9, RBC 4.36 L, Hgb 12.4 L, Hct 38.1 L, MCV 87.4, MCH 28.4, MCHC 32.5, RDW 15.4 H, RDW Differential 48.8 H, Plt Count 217, MPV 8.9, Immature Gran % (Auto) 0.200, Neut % (Auto) 69.1, Lymph % (Auto) 19.2, [place] % (Auto) 9.1, Eos % (Auto) 2.1, Baso % (Auto) 0.3, Absolute Neuts (auto) 6.9, Absolute Lymphs (auto) 1.91, Total Counted Not Reportable 01/03/18 04:45: Sodium 145, Potassium 3.8, Chloride 111 H, Carbon Dioxide 24.0, Anion Gap 10, BUN 14, Creatinine 1.13, Estim Creat Clear Calc 102.06, Est GFR (MDRD) Af Amer 96, Est GFR (MDRD) Non-Af 79, BUN/Creatinine Ratio 12.4, Glucose 73 L, Calcium 8.0 L, Total Bilirubin 0.40, AST 29, ALT 41, Alkaline Phosphatase 45, Total Protein 6.4, Albumin 3.6, Globulin 2.8, Albumin/Globulin Ratio 1.3 Current Medications Albuterol Sulfate (Ventolin Aerosols) 2.5 mg INHALATION Q2H PRN PRN PRN Reason: dyspnea, wheezing Albuterol Sulfate (Ventolin Aerosols) 2.5 mg INHALATION Q4H.RT [facility] Last Admin: 01/03/18 03:50 Dose: 2.5 mg Chlorhexidine Gluconate () 15 ml PO BID [facility] Last Admin: 01/02/18 22:32 Dose: 15 ml Chlorhexidine Gluconate () 1 each TOPICAL DAILY [facility] Last Admin: 01/03/18 03:58 Dose: 1 each Enoxaparin Sodium (Lovenox) 40 mg SC DAILY@1000 [facility] Famotidine (Pepcid) 20 mg GT BID [facility] Last Admin: 01/02/18 22:33 Dose: 20 mg Folic Acid (Folic Acid) 1 mg GT DAILYCM [facility] Propofol (Diprivan) 1,000 mg in 100 mls @ 2.994 mls/hr CONT INF .Q12H [facility]; 5 MCG/KG/MIN PRN Reason: Protocol Last Admin: 01/03/18 05:00 Dose: Not Given Sodium Chloride () 1,000 mls @ 150 mls/hr IV .Q6H40M [facility] Last Admin: 01/03/18 03:58 Dose: 150 mls/hr Sodium Chloride () 250 mls @ 15 mls/hr IV .[id number] PRN PRN Reason: SALINE FLUSH Sodium Chloride () 250 mls @ 15 mls/hr IV .[id number] PRN PRN Reason: SALINE FLUSH Fentanyl () 100 mls @ 5 mls/hr IV .Q20H [facility] Last Admin: 01/02/18 20:26 Dose: 5 mls/hr Lorazepam (Ativan) 2 mg IV Q2H PRN PRN; Protocol PRN Reason: CIWA score > 8 but <15 Lorazepam (Ativan) 2 mg IV UD PRN; Protocol PRN Reason: CIWA score >/=15. Lorazepam (Ativan) 2 mg GT Q2H PRN PRN; Protocol PRN Reason: CIWA score > 8 but <15 Lorazepam (Ativan) 2 mg GT UD PRN; Protocol PRN Reason: CIWA score >/=15. Magnesium Hydroxide (Milk Of Magnesia) 30 ml GT DAILY PRN PRN PRN Reason: Constipation [facility]it[facility] ([facility]itamin) [facility] Ondansetron HCl (Zofran) 4 mg IV Q8H PRN PRN PRN Reason: NAUSEA Promethazine HCl (Phenergan) 12.5 mg IV Q6H PRN PRN PRN Reason: NAUSEA/VOMITING Sodium Chloride () 5 - 30 ml IV UD PRN PRN Reason: SALINE FLUSH Thiamine HCl (Vitamin B1) 100 mg GT DAILYCM [facility] Medical Necessity - Tobacco Use Smoking Status: Never smoker Tobacco Use: Chew - Per family likely 1 can per day usage. Assessment/Plan All Active Problems Suicide attempt (Acute) Benzodiazepine overdose (Acute) Alcohol intoxication (Acute) The patient is a 32 y/o M w/ PMHx: Anxiety and Depression, Prior Suicide Attempts and Ideation, EtOH Abuse (1 bottle vodka/day), Chew Tobacco (~ 1 can/day) who presents to the [facility] ED on 01/02/18 with history of ingestion of the 47 Xanax pills in addition to notable alcohol consumption in suicide attempt noted to also have written a letter stating goodbye and expressing his displeasure with God. (1) Anxiety and Depression, Suspect Bipolar Disorder, Major, Uncontrolled w/ Suicide attempt by BZD Overdose w/ Acute Hypoxic Respiratory Failure: Intubated in the ED, maintained on propofol in the ED. Admitted to the ICU, [employer] Cutting [employer] consulted. Fentanyl added later given onset agitation. Will maintain on aggressive hydration q AM CXR and ABG per ICU discretion, MRSA screen negative, maintain wen catheter, maintain restraints, aspiration precautions. Mag and phos normal. Trended labs stable. Given onset now increased agitation initiated on librium taper. Once extubated will need crisis evaluation w/ transition to Inpatient psychiatric facility. May need completion of treatment for EtOH withdrawal prior to this transition given severity of his intake history. (2) EtOH Abuse w/ Acute EtOH Withdrawal: Patient w/ routine consumption of 1 bottle vodka per day. Will maintain on CIWA protocol, MVI, thiamine and folic acid. Given history and presentation as expected onset increased agitation, initiated on librium taper in addition to as needed Seroquel, Catapres, Bentyl, Vistaril, IV fluids, IV antiemetics, Tylenol as needed for pain. Mag, phos normal levels. ICU following. (3) Prolonged QT: Admission EKG w/ SR with QT/QTc 386/482, repeat EKG in AM, maintain on telemetry. (4) Chew Tobacco Abuse: Encouraged cessation, inpatient consultation per RT, NR if desired. (5) Normocytic Anemia, Unclear if Chronic: Admission Hgb 12.6, MCV 86.5, hydrating with #1, repeat CBC 12.4, encourage outpatient evaluation. (6) GI Prophylaxis: Famotidine. (7) DVT Prophylaxis: SCDs, lovenox. Code Visit Inpatient E&M: 62953 Subs Hosp L3
--- NOTE | 2018-01-03 06:47 | CON.PCM_ITS ---
Reason for Consult Date of Consultation: 01/03/18 Reason for Consultation: Acute respiratory failure History of Present Illness: The patient is a 32-year-old male, with a history as outlined below, who presented to the emergency department on January 02 via EMS following an intentional overdose of approximately 47 0.5 mg tablets of Xanax. The patient also has a reported history of long-standing alcohol dependence. History pertinent to his hospitalization was obtained via chart review, as the patient is currently intubated and sedated. The patient reportedly drinks approximately 1 bottle of vodka daily. The ED provider did report to me that the patient was initially coherent and was able to ambulate to the stretcher for transportation to the emergency department. However, en route, the patient became less responsive and presented to the emergency department with a GCS score of 6. On arrival, the patient was noted to be afebrile and hemodynamically stable. The patient did have an ethyl alcohol level of 353 and a positive toxicology screen for benzodiazepines. Given that the patient was obtunded, he was emergently intubated in the emergency department for airway protection. Head CT revealed no acute intracranial process. Plain film chest x-ray revealed no acute cardiopulmonary process. The patient was subsequently transferred to the medical intensive care unit for ongoing management. Past Medical History Past Medical History (Chronic Problems): Chronic Problems Alcohol abuse (Chronic) Depression with anxiety (Chronic) Chewing tobacco nicotine dependence (Chronic) Allergies No Known Allergies Allergy (Verified 01/02/18 13:51) Home Medications: Ambulatory Orders Medication Instructions Recorded Alprazolam [Xanax] 0.5 mg PO BID PRN PRN 01/02/18 Citalopram Hydrobromide [Celexa] 20 mg PO DAILY 01/02/18 Perphenazine [Perphenazine] 4 mg PO BID 01/02/18 Perphenazine [Perphenazine] 8 mg PO QHS 01/02/18 Quetiapine Fumarate [Seroquel] 50 mg PO QHS 01/02/18 Surgical History: - - Appendectomy and right upper extremity surgery status post injury with hardware. Psychiatric History: Anxiety, Bipolar - Suspect patient is bipolar., Depression , Prior suicide attempt Lives: Alone Smoking Status: Never smoker Tobacco Use: Chew - Per family likely 1 can per day usage. Alcohol: Heavy - At least one bottle of vodka daily per family report. Drugs: None - *Family History Maternal History Items: - - Mother with a history of TIA, pernicious anemia and iron deficiency anemia. Paternal History Items: - - Father with a history of alcohol abuse and depression as well as suicide attempts. Review of Systems Unable to obtain accurate/complete ROS d/t: Due to current intubation and mechanical ventilation status. Patient Problems: Active and Suspected Problems Suicide attempt (Acute) Benzodiazepine overdose (Acute) Alcohol intoxication (Acute) Objective: The patient's most recent lab work, culture data and imaging studies have all been personally reviewed. - Physical Exam General: - - Intubated, sedated and mechanically ventilated. No ventilator dyssynchrony noted. HEENT: Atraumatic, PERRLA, Normocephalic Oral: No Gingival or Mucosal Lesions/ Ulcerations, - - Endotracheal and OG tubes in place. Neck: Supple, No Nodes, Trachea Midline Lungs: - - Clear across anterior lung lyman without appreciable wheezes, rales or rhonchi. Cardiovascular: Regular rate, Regular Rhythm, Normal S1, Normal S2, No murmurs Abdomen: Bowel Sounds Present, Soft, Non Tender Extremities: No clubbing, No cyanosis, No edema Skin: No breakdown, - - Tattoos present Musculoskeletal: No Tenderness to Palpation of Joints or Extremities, No Muscle Wasting Lymphatic: No Cervical, Supraclavicular, or Inguinal Adenopathy Neurological: - - No focal neurological deficits. Moves all extremities spontaneously. Becomes increasingly agitated with any form of stimulation. Psych/Mental Status: Agitated, Restless Vital Signs Temp Pulse Resp BP Pulse Ox 98.6 F 72 14 121/71 H 99 01/03/18 05:00 01/03/18 06:00 01/03/18 06:00 01/03/18 06:00 01/03/18 06:00 Oxygen Delivery Method Mechanical Ventilator Weight: 174 lb 9.698 oz Body Mass Index (BMI) 23.4 Intake and Output for Last 24 Hours 01/01/18 01/02/18 01/03/18 23:59 23:59 23:59 Intake Total 2147.7 / 2147.7 1432.1 / 1432.1 Output Total 850 / 850 375 / 375 Balance 1297.7 / 1297.7 1057.1 / 1057.1 Laboratory Tests Past 24 Hrs 01/02/18 01/02/18 01/03/18 17:25 18:57 04:45 WBC 9.9 RBC 4.36 L Hgb 12.4 L Hct 38.1 L MCV 87.4 MCH 28.4 MCHC 32.5 RDW 15.4 H RDW Differential 48.8 H Plt Count 217 MPV 8.9 Immature Gran % (Auto) 0.200 Neut % (Auto) 69.1 Lymph % (Auto) 19.2 [place] % (Auto) 9.1 Eos % (Auto) 2.1 Baso % (Auto) 0.3 Absolute Neuts (auto) 6.9 Absolute Lymphs (auto) 1.91 Total Counted Not Reportable Specimen Type ART Sample Site R Radial pH 7.33 L Bicarbonate Actual 26.6 H POC Total CO2 28 Base Excess 1 O2 Saturation 98 O2 % 30 ABG pCO2 51.1 H ABG pO2 125 H Damien Test POS Respiration Rate 12 O2 Delivery Device Vent Minute Volume 5.00 Vent Mode A-C Tidal Volume 500 POC PEEP 5 Blood Gas Notified Whom [facility] MD Blood Gas Notified Time 1855 Sodium Potassium Chloride Carbon Dioxide Anion Gap BUN Creatinine Estim Creat Clear Calc Est GFR (MDRD) Af Amer Est GFR (MDRD) Non-Af BUN/Creatinine Ratio Glucose Calcium Total Bilirubin AST ALT Alkaline Phosphatase Total Protein Albumin Globulin Albumin/Globulin Ratio MRSA (PCR) Negative 01/03/18 04:45 WBC RBC Hgb Hct MCV MCH MCHC RDW RDW Differential Plt Count MPV Immature Gran % (Auto) Neut % (Auto) Lymph % (Auto) [place] % (Auto) Eos % (Auto) Baso % (Auto) Absolute Neuts (auto) Absolute Lymphs (auto) Total Counted Specimen Type Sample Site pH Bicarbonate Actual POC Total CO2 Base Excess O2 Saturation O2 % ABG pCO2 ABG pO2 Damien Test Respiration Rate O2 Delivery Device Minute Volume Vent Mode Tidal Volume POC PEEP Blood Gas Notified Whom Blood Gas Notified Time Sodium 145 Potassium 3.8 Chloride 111 H Carbon Dioxide 24.0 Anion Gap 10 BUN 14 Creatinine 1.13 Estim Creat Clear Calc 102.06 Est GFR (MDRD) Af Amer 96 Est GFR (MDRD) Non-Af 79 BUN/Creatinine Ratio 12.4 Glucose 73 L Calcium 8.0 L Total Bilirubin 0.40 AST 29 ALT 41 Alkaline Phosphatase 45 Total Protein 6.4 Albumin 3.6 Globulin 2.8 Albumin/Globulin Ratio 1.3 MRSA (PCR) Clinical Impression(s) from Imaging Studies KUB X-Ray 01/02/18 11:55 IMPRESSION: The orogastric tube is coiled about within the gastric fundus. Electronically Signed: Mati Mccloud, at 15:04 EDT Tel , Service support , Brain CT 01/02/18 13:16 IMPRESSION: No acute intracranial process. Electronically Signed: Mati Schmittney, at 14:48 EDT Tel , Service support , Chest X-Ray 01/02/18 14:05 IMPRESSION: No acute cardiopulmonary process. Electronically Signed: Mati Mccloud, at 15:05 EDT Tel , Service support , Chest X-Ray 01/02/18 16:40 IMPRESSION: No acute cardiopulmonary process. Lines and tubes as detailed above. Electronically Signed: Mati Mccloud, at 17:41 EDT Tel , Service support , Assessment/Plan Active and Suspected Problems Suicide attempt (Acute) Benzodiazepine overdose (Acute) Alcohol intoxication (Acute) RECOMMENDATIONS: 1. Discontinue Librium, as the patient is on propofol and fentanyl. 2. Continue as needed Ativan 3. Continue thiamine and folate 4. Continue supplemental IV fluids, until tube feeds are initiated. 5. Continue appropriate ICU prophylaxis 6. Behavioral health evaluation, once medically stabilized. IMPRESSIONS: 1. Acute respiratory failure The patient was intubated in the emergency department upon arrival due to depressed GCS and concern for airway protection. His ventilator requirements are minimal with no acute cardiopulmonary process noted on chest imaging. Recommend continuing current supportive measures along with propofol and fentanyl for sedation, as the patient appears to be experiencing some of the early stages of potential withdrawal. Will obtain nutrition consult for recommendations regarding tube feeds. 2. Encephalopathy Secondary to intentional benzodiazepine overdose coupled with acute alcohol intoxication. Improving at this time. We will continue current sedation regimen with a goal to maintain a RASS of -1 to 1. 3. Intentional overdose/suicide attempt with history of alcohol dependence The patient is currently pink slipped and will require behavioral health evaluation, once medically stabilized. Continue to monitor for signs of alcohol withdrawal. Continue thiamine and folate as ordered. 4. History of tobacco dependence The patient reportedly chews tobacco as an outpatient. Cessation is advisable. Nicotine replacement therapy can be utilized, if clinically indicated. TIME: 38 minutes of critical care time, independent of procedures, was spent addressing the patient's acute respiratory failure, encephalopathy, intentional overdose/suicide attempt, alcohol dependence with withdrawal, review of all data and collaboration with the care team. ([id number]) Code Visit 9xxxx: [id number] Critical care first hour
--- NOTE | 2018-01-03 06:50 | PN_ITS ---
Patient Problems: Active and Suspected Problems Suicide attempt (Acute) Benzodiazepine overdose (Acute) Alcohol intoxication (Acute) Subjective: ICU staff noting patient increasingly agitated overnight but ongoing usage of propofol and fentanyl drip. Patient with severe alcohol consumption history and following discussions with ICU staff, librium taper initiated with improvement following. Patient does awaken and is s/p recent librium dosing with more relaxed demeanor, able to answer yes, no questions with head noding. Patient denies fevers, chills, nausea, emesis, abdominal pain, chest pain or dyspnea. Patient eager for extubation which was discussed but current plan per discussion with insurance operations rep to maintain intubated status given severity of alcohol abuse history and concern for severe withdrawal symptoms. Objective: Physical Examination: General: awake, alert, currently calm and recent Librium taper initiation, able to answer questions with yes and no with head nod, no acute distress currently, remains intubated and sedated in the ICU. Skin: Normal color, turgor, no icterus, cyanosis. HEENT: AT/NC, EOMI, PERRLA, sedation ongoing w/ intubated status, mildly dry MM. Lungs: Symmetric BL rise, intubated, sedated, no rales, ronchi or wheezing. Heart: Regular rate and rhythm; no gallop, rub audible. Abdomen: soft, NTTP, ND, normal BS. Extremities: no cyanosis, clubbing, or edema. Neurological: awake, alert, currently calm and recent Librium taper initiation, able to answer questions with yes and no with head nod; cognitive function improving, still not baseline intact; pupils equally reactive to light and accomodation; sedated, CN able to be tested appear intact, strength difficult to assess given status. Psychiatric: affect appears calm currently, prior severely agitated despite sedation, recent suicide attempt. Vitals/I&O's: Vital Signs Temp Pulse Resp BP Pulse Ox 98.6 F 72 14 121/71 H 99 01/03/18 05:00 01/03/18 06:00 01/03/18 06:00 01/03/18 06:00 01/03/18 06:00 Oxygen Delivery Method Mechanical Ventilator Weight: 174 lb 9.698 oz Body Mass Index (BMI) 23.4 Intake and Output for Last 24 Hours 01/01/18 01/02/18 01/03/18 23:59 23:59 23:59 Intake Total 2147.7 / 2147.7 1432.1 / 1432.1 Output Total 850 / 850 375 / 375 Balance 1297.7 / 1297.7 1057.1 / 1057.1 Laboratory Results 01/02/18 17:25: MRSA (PCR) Negative 01/02/18 18:57: Specimen Type ART, Sample Site R Radial, pH 7.33 L, Bicarbonate Actual 26.6 H, POC Total CO2 28, Base Excess 1, O2 Saturation 98, O2 % 30, ABG pCO2 51.1 H, ABG pO2 125 H, Damien Test POS, Respiration Rate 12, O2 Delivery Device Vent, Minute Volume 5.00, Vent Mode A-C, Tidal Volume 500, POC PEEP 5, Blood Gas Notified Whom [facility] , Blood Gas Notified Time 1855 01/03/18 04:45: WBC 9.9, RBC 4.36 L, Hgb 12.4 L, Hct 38.1 L, MCV 87.4, MCH 28.4 , MCHC 32.5, RDW 15.4 H, RDW Differential 48.8 H, Plt Count 217, MPV 8.9, Immature Gran % (Auto) 0.200, Neut % (Auto) 69.1, Lymph % (Auto) 19.2, [place] % ( Auto) 9.1, Eos % (Auto) 2.1, Baso % (Auto) 0.3, Absolute Neuts (auto) 6.9, Absolute Lymphs (auto) 1.91, Total Counted Not Reportable 01/03/18 04:45: Sodium 145, Potassium 3.8, Chloride 111 H, Carbon Dioxide 24.0, Anion Gap 10, BUN 14, Creatinine 1.13, Estim Creat Clear Calc 102.06, Est GFR ( MDRD) Af Amer 96, Est GFR (MDRD) Non-Af 79, BUN/Creatinine Ratio 12.4, Glucose 73 L, Calcium 8.0 L, Total Bilirubin 0.40, AST 29, ALT 41, Alkaline Phosphatase 45, Total Protein 6.4, Albumin 3.6, Globulin 2.8, Albumin/Globulin Ratio 1.3 Current Medications Albuterol Sulfate (Ventolin Aerosols) 2.5 mg INHALATION Q2H PRN PRN PRN Reason: dyspnea, wheezing Albuterol Sulfate (Ventolin Aerosols) 2.5 mg INHALATION Q4H.RT [facility] Last Admin: 01/03/18 03:50 Dose: 2.5 mg Chlorhexidine Gluconate () 15 ml PO BID [facility] Last Admin: 01/02/18 22:32 Dose: 15 ml Chlorhexidine Gluconate () 1 each TOPICAL DAILY [facility] Last Admin: 01/03/18 03:58 Dose: 1 each Enoxaparin Sodium (Lovenox) 40 mg SC DAILY@1000 [facility] Famotidine (Pepcid) 20 mg GT BID [facility] Last Admin: 01/02/18 22:33 Dose: 20 mg Folic Acid (Folic Acid) 1 mg GT DAILYCM [facility] Propofol (Diprivan) 1,000 mg in 100 mls @ 2.994 mls/hr CONT INF .Q12H [facility]; 5 MCG/KG/MIN PRN Reason: Protocol Last Admin: 01/03/18 05:00 Dose: Not Given Sodium Chloride () 1,000 mls @ 150 mls/hr IV .[id number] [facility] Last Admin: 01/03/18 03:58 Dose: 150 mls/hr Sodium Chloride () 250 mls @ 15 mls/hr IV .[id number] PRN PRN Reason: SALINE FLUSH Sodium Chloride () 250 mls @ 15 mls/hr IV .[id number] PRN PRN Reason: SALINE FLUSH Fentanyl () 100 mls @ 5 mls/hr IV .Q20H [facility] Last Admin: 01/02/18 20:26 Dose: 5 mls/hr Lorazepam (Ativan) 2 mg IV Q2H PRN PRN; Protocol PRN Reason: CIWA score > 8 but <15 Lorazepam (Ativan) 2 mg IV UD PRN; Protocol PRN Reason: CIWA score >/=15. Lorazepam (Ativan) 2 mg GT Q2H PRN PRN; Protocol PRN Reason: CIWA score > 8 but <15 Lorazepam (Ativan) 2 mg GT UD PRN; Protocol PRN Reason: CIWA score >/=15. Magnesium Hydroxide (Milk Of Magnesia) 30 ml GT DAILY PRN PRN PRN Reason: Constipation Multivitamins ([facility]ivitamin) [facility] Ondansetron HCl (Zofran) 4 mg IV Q8H PRN PRN PRN Reason: NAUSEA Promethazine HCl (Phenergan) 12.5 mg IV Q6H PRN PRN PRN Reason: NAUSEA/VOMITING Sodium Chloride () 5 - 30 ml IV UD PRN PRN Reason: SALINE FLUSH Thiamine HCl (Vitamin B1) 100 mg GT DAILYCM [facility] Medical Necessity - Tobacco Use Smoking Status: Never smoker Tobacco Use: Chew - Per family likely 1 can per day usage. Assessment/Plan All Active Problems Suicide attempt (Acute) Benzodiazepine overdose (Acute) Alcohol intoxication (Acute) The patient is a 32 y/o M w/ PMHx: Anxiety and Depression, Prior Suicide Attempts and Ideation, EtOH Abuse (1 bottle vodka/day), Chew Tobacco (~ 1 can/ day) who presents to the [facility] ED on 01/02/18 with history of ingestion of the 47 Xanax pills in addition to notable alcohol consumption in suicide attempt noted to also have written a letter stating goodbye and expressing his displeasure with God. (1) Anxiety and Depression, Suspect Bipolar Disorder, Major, Uncontrolled w/ Suicide attempt by BZD Overdose w/ Acute Hypoxic Respiratory Failure: Intubated in the ED, maintained on propofol in the ED. Admitted to the ICU, Music Instructor consulted. Fentanyl added later given onset agitation. Will maintain on aggressive hydration q AM CXR and ABG per ICU discretion, MRSA screen negative, maintain wen catheter, maintain restraints, aspiration precautions. Mag and phos normal. Trended labs stable. Given onset now increased agitation initiated on librium taper. Once extubated will need crisis evaluation w/ transition to Inpatient psychiatric facility. May need completion of treatment for EtOH withdrawal prior to this transition given severity of his intake history. (2) EtOH Abuse w/ Acute EtOH Withdrawal: Patient w/ routine consumption of 1 bottle vodka per day. Will maintain on CIWA protocol, MVI, thiamine and folic acid. Given history and presentation as expected onset increased agitation, initiated on librium taper in addition to as needed Seroquel, Catapres, Bentyl, Vistaril, IV fluids, IV antiemetics, Tylenol as needed for pain. Mag, phos normal levels. ICU following. (3) Prolonged QT: Admission EKG w/ SR with QT/QTc 386/482, repeat EKG in AM, maintain on telemetry. (4) Chew Tobacco Abuse: Encouraged cessation, inpatient consultation per RT, NR if desired. (5) Normocytic Anemia, Unclear if Chronic: Admission Hgb 12.6, MCV 86.5, hydrating with #1, repeat CBC 12.4, encourage outpatient evaluation. (6) GI Prophylaxis: Famotidine. (7) DVT Prophylaxis: SCDs, lovenox. Code Visit Inpatient E&M: 68490 Subs Hosp L3
[2018-01-03] MEDS: chlordiazePOXIDE 25 MG Capsule 50 MG GT ×3 (07:06→18:14)
[2018-01-03] MEDS: Multivitamins,Therapeutic Tablet 1 TABLET GT (07:56)
[2018-01-03] MEDS: Folic Acid 1 MG Tablet GT (07:56)
[2018-01-03] MEDS: Thiamine Hydrochloride 100 MG Tablet GT (07:56)
[2018-01-03] MEDS: Famotidine 20 MG Tablet GT ×2 (07:57→21:12)
[2018-01-03] MEDS: Senna/Docusate Sodium 1 Tablet 2 TABLET GT ×2 (07:58→21:12)
[2018-01-03] MEDS: Chlorhexidine 15 ML PO ×2 (09:30→21:20)
[2018-01-03] MEDS: Enoxaparin 40 MG/0.4 ML Syringe SC (09:31)
[2018-01-03] MEDS: Vital AF 1.2 Cal Liquid 1,000 ML 25 ML GT (10:00)
--- NOTE | 2018-01-03 11:39 | CASEMGMT ---
SOCIAL WORK: Patient is a 32 year old male admitted to ICU via ER following suicide attempt per overdose of 47 Xanax and 1L of Vodka; apparently also wrote a suicide note. Chart reviewed. History of Bipolar Disorder, Schizophrenia, Depression and Anxiety with prior suicide attempts, heavy alcohol abuse and daily tobacco chew. Mom appears to be primary support. PLAN: Currently requiring mechanical ventilation on Propofol and Fentanyl Drip; CIWA protocol. Crisis evaluation when medically cleared. MIRELA Rao
[2018-01-03] MEDS: LORazepam 2 MG/ML Syringe IV ×2 (12:27→14:57)
[2018-01-03] MEDS: QUEtiapine 25 MG Tablet PO (15:25)
[2018-01-04] VITALS (33 sets, daily range): BP systolic 93–149; BP diastolic 50–86; PULSE 54–104; RESP 10–29; TEMP 37.1–38.1; O2SAT 88–100
[2018-01-04] MEDS: chlordiazePOXIDE 25 MG Capsule 50 MG GT (01:49)
[2018-01-04] MEDS: Propofol 10MG/Ml 1,000 MG/100 ML Bottle 2.994 MG CONT INF (03:03)
[2018-01-04 04:22] LABS: Absolute Lymphocyte Count 1.52 X10^3/ul (0.83-4.51); Absolute Neutrophil Count 4.9 X10^3/uL (2.0-7.7); Basophil# 0.02 X10^3/uL; Basophil% 0.3 % (0-1); Eosinophil# 0.24 X10^3/uL; Eosinophils% 3.2 % (0-5); Hematocrit 34.4 % (40-54); Hemoglobin 10.7 g/dl (13.0-16.5); Lymphocyte # 1.52 X10^3/ul (4.0); Lymphocyte % 20.3 % (19-41); Mean Corp Hgb Conc 31.1 g/gl (32-36); Mean Corpuscular Hgb 27.5 pg (27.0-32.0); Mean Corpuscular Volume 88.4 fL (80-94); Mean Platelet Vol. 9.5 fl (6.2-12.0); Monocyte# 0.83 X10^3/uL; Monocyte% 11.1 % (0-10); Neutrophil # 4.86 X10^3/uL (2.7-7.7); Neutrophil % 64.8 % (47-70); Platelet Count 146 K/mm3 (150-450); RBC Distribution Width CV 15.2 % (11.6-14.6); RBC Distribution Width SD 49.2 fl (35.1-43.9); Red Blood Count 3.89 M/mm3 (4.6-6.2); White Blood Count 7.5 K/mm3 (4.4-11.0)
[2018-01-04 04:25] LABS: POSITIVE COUNT NO; POSITIVE DIFFERENTIAL NO; POSITIVE MORPHOLOGY NO
[2018-01-04] MEDS: 0.9% Normal Saline 1,000 ML 150 ML IV (04:26)
[2018-01-04 04:40] LABS: ALB/GLOB Ratio 1.2 RATIO (0.9-2.4); AST(SGOT) 20 U/L (15-37); Alanine Aminotransfer ALT/SGPT 29 U/L (16-61); Alkaline Phosphatase 44 U/L (45-117); Anion Gap 8 (5-15); BUN 15 mg/dL (7-18); BUN/Creat Ratio 13.5 RATIO (10-20); Chloride 106 mmol/L (98-107); Creatinine, Serum 1.11 mg/dL (0.70-1.30); EST Glomerular Filtration Rate 81 mL/min (>60); Est Glom Filt Rate - Afr Amer 98 mL/min (>60); Estimated Creatinine Clearance 103.89 ml/min; Globulin 2.5 g/dL (2.2-4.2); Glucose 87 mg/dL (74-106); Potassium 3.8 mmol/L (3.5-5.1); Protein, Total 5.5 g/dL (6.4-8.2); Sodium Level 142 mmol/L (136-145)
--- NOTE | 2018-01-04 06:30 | RAD_ITS ---
STUDY: X-RAY CHEST REASON FOR EXAM: Male, 32 years old. Shortness of breath. Possible aspiration TECHNIQUE: 1 view COMPARISON: January 02, 2018 FINDINGS: An NG tube and ET tube are in place with the ET tube 2.7 cm above the dmitriy. The lungs are clear. The heart is normal in size. The stomach is gaseously distended . Normal visualized thoracic spine. Normal visualized ribs, clavicles, and shoulders. There is no demonstrated abnormality of the visualized soft tissue structures of the upper abdomen. RAD/Chest 1 View (Portable) IMPRESSION: No acute findings in the lungs. Stomach is gaseously distended Electronically Signed: Pancho Parker, at 7:01 EDT Tel , Service support ,
--- NOTE | 2018-01-04 06:48 | PN_ITS ---
Subjective: Patient did okay overnight. Patient did have a spontaneous awakening and breathing trial this morning. At the end of the spontaneous breathing trial, patient did have a large emesis. Chest x-ray showed no acute infiltrate, but significantly enlarged stomach. Patient did have a fever overnight. Patient currently is following commands, but is in some distress secondary to gagging on the endotracheal tube. Objective: Repeat chest x-ray was personally reviewed. This shows no acute infiltrate however significant distention of the stomach. General: Alert, Cooperative, - - Mild distress. Appears stated age. HEENT: Atraumatic, PERRLA, EOMI, Normocephalic, - - No scleral icterus or injection noted. Oral: Moist Mucosa, No Gingival or Mucosal Lesions/ Ulcerations Neck: Supple, No JVD, No Nodes, Trachea Midline Lungs: Clear to auscultation, Normal air movement, No rhonchi, No wheeze, No rales, - - Symmetric expansion. No dullness to percussion. Cardiovascular: Regular rate, Regular Rhythm, Normal S1, Normal S2, No murmurs, No rub noted, No Gallop Abdomen: Bowel Sounds Present, Soft, Non Tender, Distended Extremities: No clubbing, No cyanosis, No edema, Capillary Refill Less than 3 Seconds Skin: No rashes, No breakdown Musculoskeletal: No Tenderness to Palpation of Joints or Extremities Lymphatic: No Cervical, Supraclavicular, or Inguinal Adenopathy Neurological: Cranial nerves II-XII grossly intact, Neuro grossly intact, Motor Exam 5/5 strength throughout Psych/Mental Status: Anxious, Restless Vital Signs Temp Pulse Resp BP Pulse Ox 37.7 C H 81 14 148/85 H 100 01/04/18 06:00 01/04/18 06:00 01/04/18 06:00 01/04/18 06:00 01/04/18 06:00 Oxygen Flow Rate (L/min) 30 Oxygen Delivery Method Mechanical Ventilator Weight: 82.4 kg Body Mass Index (BMI) 23.4 Intake and Output for Last 24 Hours 01/02/18 01/03/18 01/04/18 23:59 23:59 23:59 Intake Total 2147.7 / 2147.7 4040.1 / 4040.1 3521 / 3521 Output Total 850 / 850 1025 / 1025 1300 / 1300 Balance 1297.7 / 1297.7 3015.1 / 3015.1 2221 / 2221 Labs (Last 48 Hours) 01/02/18 01/02/18 01/03/18 17:25 18:57 04:45 WBC 9.9 RBC 4.36 L Hgb 12.4 L Hct 38.1 L MCV 87.4 MCH 28.4 MCHC 32.5 RDW 15.4 H RDW Differential 48.8 H Plt Count 217 MPV 8.9 Immature Gran % (Auto) 0.200 Neut % (Auto) 69.1 Lymph % (Auto) 19.2 [place] % (Auto) 9.1 Eos % (Auto) 2.1 Baso % (Auto) 0.3 Absolute Neuts (auto) 6.9 Absolute Lymphs (auto) 1.91 Total Counted Not Reportable Specimen Type ART Sample Site R Radial pH 7.33 L Bicarbonate Actual 26.6 H POC Total CO2 28 Base Excess 1 O2 Saturation 98 O2 % 30 ABG pCO2 51.1 H ABG pO2 125 H Damien Test POS Respiration Rate 12 O2 Delivery Device Vent Minute Volume 5.00 Vent Mode A-C Tidal Volume 500 POC PEEP 5 Blood Gas Notified Whom [facility] Blood Gas Notified Time 1855 Sodium Potassium Chloride Carbon Dioxide Anion Gap BUN Creatinine Estim Creat Clear Calc Est GFR (MDRD) Af Amer Est GFR (MDRD) Non-Af BUN/Creatinine Ratio Glucose Calcium Total Bilirubin AST ALT Alkaline Phosphatase Total Protein Albumin Globulin Albumin/Globulin Ratio MRSA (PCR) Negative 01/03/18 01/04/18 01/04/18 04:45 04:10 04:10 WBC 7.5 RBC 3.89 L Hgb 10.7 L Hct 34.4 L MCV 88.4 MCH 27.5 MCHC 31.1 L RDW 15.2 H RDW Differential 49.2 H Plt Count 146 L MPV 9.5 Immature Gran % (Auto) 0.300 Neut % (Auto) 64.8 Lymph % (Auto) 20.3 [place] % (Auto) 11.1 H Eos % (Auto) 3.2 Baso % (Auto) 0.3 Absolute Neuts (auto) 4.9 Absolute Lymphs (auto) 1.52 Total Counted Not Reportable Specimen Type Sample Site pH Bicarbonate Actual POC Total CO2 Base Excess O2 Saturation O2 % ABG pCO2 ABG pO2 Damien Test Respiration Rate O2 Delivery Device Minute Volume Vent Mode Tidal Volume POC PEEP Blood Gas Notified Whom Blood Gas Notified Time Sodium 145 142 Potassium 3.8 3.8 Chloride 111 H 106 Carbon Dioxide 24.0 28.0 Anion Gap 10 8 BUN 14 15 Creatinine 1.13 1.11 Estim Creat Clear Calc 102.06 103.89 Est GFR (MDRD) Af Amer 96 98 Est GFR (MDRD) Non-Af 79 81 BUN/Creatinine Ratio 12.4 13.5 Glucose 73 L 87 Calcium 8.0 L 8.0 L Total Bilirubin 0.40 0.50 AST 29 20 ALT 41 29 Alkaline Phosphatase 45 44 L Total Protein 6.4 5.5 L Albumin 3.6 3.0 L Globulin 2.8 2.5 Albumin/Globulin Ratio 1.3 1.2 MRSA (PCR) Medical Necessity - Tobacco Use Smoking Status: Never smoker Tobacco Use: Chew - Per family likely 1 can per day usage. Assessment/Plan All Active Problems Suicide attempt (Acute) Benzodiazepine overdose (Acute) Alcohol intoxication (Acute) RECOMMENDATIONS: 1. Reinitiate Librium once patient passes bedside swallow 2. Continue thiamine, folate and as needed Ativan 3. Okay to extubate 4. Decompress stomach prior to extubation 5. Continue appropriate ICU prophylaxis 6. Behavioral health evaluation, once medically stabilized. IMPRESSIONS: 1. Acute respiratory failure The patient was intubated in the emergency department upon arrival due to depressed GCS and concern for airway protection. Patient has passed a spontaneous breathing trial. Patient has had an emesis that appears to be secondary to a gag reflex. No obvious aspiration noted on chest x-ray. Will proceed with extubation after stomach has been decompressed. 2. Toxic encephalopathy Secondary to intentional benzodiazepine overdose coupled with acute alcohol intoxication. Improving at this time. 3. Intentional overdose/suicide attempt with history of alcohol dependence The patient is currently pink slipped and will require behavioral health evaluation, once medically stabilized. Patient can be reinitiated on Librium therapy following bedside swallow evaluation. Anticipate another 2448 hrs. before patient will be able to be evaluated by crisis given his high alcohol level on presentation. 4. History of tobacco dependence The patient reportedly chews tobacco as an outpatient. Cessation is advisable. Nicotine replacement therapy can be utilized, if clinically indicated. TIME: 31 minutes of critical care time was spent addressing the patient's acute respiratory failure, encephalopathy, intentional overdose/suicide attempt, alcohol dependence with withdrawal, review of all data and collaboration with the care team. (5:30 AM to 6:30 AM) Code Visit 9xxxx: [id number] Critical care first hour
--- NOTE | 2018-01-04 06:51 | PCM.PN.HOSP ---
Patient Problems: Active and Suspected Problems Suicide attempt (Acute) Benzodiazepine overdose (Acute) Alcohol intoxication (Acute) Subjective: Patient overnight remained more calm and able to be extubated this morning however did have bout of emesis following with notable gastric disc distention noted on plain film. Patient following extubation noting very sore throats and some discomfort swelling but otherwise no acute complaints. Patient admitting to suicidal intentions and ongoing depression in addition to ability to confirm history of bipolar disorder, borderline, possibly personality disorder previously seeing a psychiatrist in town who recently left despite her encouragement to follow-up with a named psychiatrist he did not do so and has not been evaluated recently. He does have notable evidence of prior cutting on his upper extremities. Patient denies fevers, chills, nausea, emesis, abdominal pain, chest pain or dyspnea. Objective: Physical Examination: General: awake, alert, oriented x 3 and cooperative, seated upright in the ICU bed in no apparent distress, extubated. Skin: normal color, turgor, no icterus, cyanosis. HEENT: AT/NC, EOMI, PERRLA, mildly dry MM. Lungs: Improved, extubated, mildly diminished bases, no rales, ronchi or wheezing. Heart: Regular rate and rhythm; no gallop, rub audible. Abdomen: soft, NTTP, ND, normal BS Extremities: no cyanosis, clubbing, or edema. Neurological: patient awake, alert, oriented x 3; cognitive function intact; pupils equally reactive to light and accomodation; cranial nerves II-XII grossly normal, moving all 4 extremities, no focal deficits, strength improved, mildly to moderately globally decreased. Psychiatric: affect appears normal, he is able to discuss his recent suicide attempt, confirms diagnosis history, extremely talkative, no acute evidence of depressive or anxiety feelings currently despite acute presentation. Vitals/I&O's: Vital Signs Temp Pulse Resp BP Pulse Ox 99.9 F H 81 14 148/85 H 100 01/04/18 06:00 01/04/18 06:00 01/04/18 06:00 01/04/18 06:00 01/04/18 06:00 Oxygen Flow Rate (L/min) 30 Oxygen Delivery Method Mechanical Ventilator Weight: 181 lb 10.574 oz Body Mass Index (BMI) 23.4 Intake and Output for Last 24 Hours 01/02/18 01/03/18 01/04/18 23:59 23:59 23:59 Intake Total 2147.7 / 2147.7 4040.1 / 4040.1 3521 / 3521 Output Total 850 / 850 1025 / 1025 1300 / 1300 Balance 1297.7 / 1297.7 3015.1 / 3015.1 2221 / 2221 Laboratory Results 01/04/18 04:10: WBC 7.5, RBC 3.89 L, Hgb 10.7 L, Hct 34.4 L, MCV 88.4, MCH 27.5, MCHC 31.1 L, RDW 15.2 H, RDW Differential 49.2 H, Plt Count 146 L, MPV 9.5, Immature Gran % (Auto) 0.300, Neut % (Auto) 64.8, Lymph % (Auto) 20.3, [place] % (Auto) 11.1 H, Eos % (Auto) 3.2, Baso % (Auto) 0.3, Absolute Neuts (auto) 4.9, Absolute Lymphs (auto) 1.52, Total Counted Not Reportable 01/04/18 04:10: Sodium 142, Potassium 3.8, Chloride 106, Carbon Dioxide 28.0, Anion Gap 8, BUN 15, Creatinine 1.11, Estim Creat Clear Calc 103.89, Est GFR (MDRD) Af Amer 98, Est GFR (MDRD) Non-Af 81, BUN/Creatinine Ratio 13.5, Glucose 87, Calcium 8.0 L, Total Bilirubin 0.50, AST 20, ALT 29, Alkaline Phosphatase 44 L, Total Protein 5.5 L, Albumin 3.0 L, Globulin 2.5, Albumin/Globulin Ratio 1.2 Current Medications Acetaminophen (Tylenol) 500 mg PO Q4H PRN PRN PRN Reason: Temp > 100.4 F Bisacodyl (Dulcolax) 10 mg RECTAL DAILY PRN PRN Reason: Constipation Chlordiazepoxide (Librium) 50 mg PO TID PRN PRN; Taper PRN Reason: Alcohol Withdrawal Stop: 01/06/18 08:59 Chlorhexidine Gluconate () 15 ml PO BID [facility] Last Admin: 01/03/18 21:20 Dose: 15 ml Chlorhexidine Gluconate () 1 each TOPICAL DAILY [facility] Last Admin: 01/03/18 03:58 Dose: 1 each Dicyclomine HCl (Bentyl) 20 mg PO Q6H PRN PRN PRN Reason: abdominal discomfort Enoxaparin Sodium (Lovenox) 40 mg SC DAILY@1000 [facility] Last Admin: 01/03/18 09:31 Dose: 40 mg Famotidine (Pepcid) 20 mg GT BID [facility] Last Admin: 01/03/18 21:12 Dose: 20 mg [facility] Stop: 01/06/18 08:01 Hydroxyzine Pamoate (Vistaril Pamoate Capsule) 50 mg PO Q6H PRN PRN PRN Reason: Mild Anxiety (score 1/3) Sodium Chloride () 250 mls @ 15 mls/hr IV .[id number] PRN PRN Reason: SALINE FLUSH Enteral Nutritional Formula (Vital Af 1.2 Yonas Liquid) 1,000 mls @ 25 mls/hr GT .Q40H [facility] PRN Reason: Protocol Last Admin: 01/03/18 10:00 Dose: 25 mls/hr Ibuprofen (Motrin) 600 mg PO Q8H PRN PRN PRN Reason: Mild-Moderate Pain (1-5/10) Loperamide HCl (Imodium) 2 - 4 mg PO UD PRN PRN Reason: LOOSE STOOLS Lorazepam (Ativan) 2 mg IV Q2H PRN PRN; Protocol PRN Reason: CIWA score > 8 but <15 Last Admin: 01/03/18 14:57 Dose: 2 mg Lorazepam (Ativan) 2 mg IV UD PRN; Protocol PRN Reason: CIWA score >/=15. Lorazepam (Ativan) 2 mg GT Q2H PRN PRN; Protocol PRN Reason: CIWA score > 8 but <15 Lorazepam (Ativan) 2 mg GT UD PRN; Protocol PRN Reason: CIWA score >/=15. Magnesium Hydroxide (Milk Of Magnesia) 30 ml GT DAILY PRN PRN PRN Reason: Constipation Methocarbamol (Methocarbamol) 750 mg PO Q6H PRN PRN PRN Reason: Muscle Aches [facility]it[facility] ([facility]amin) [facility] Last Admin: 01/03/18 07:56 Dose: 1 tablet Ondansetron HCl (Zofran) 4 mg IV Q8H PRN PRN PRN Reason: NAUSEA Quetiapine Fumarate (Seroquel) 25 mg PO Q6H PRN PRN PRN Reason: agitation, anxiety Last Admin: 01/03/18 15:25 Dose: 25 mg Senna (Senokot) 1 tablet PO QHS PRN PRN PRN Reason: Constipation Senna/Docusate Sodium (Senokot-S, Sharon-Colace) 2 tablet GT BID [facility] Last Admin: 01/03/18 21:12 Dose: 2 tablet Sodium Chloride () 5 - 30 ml IV UD PRN PRN Reason: SALINE FLUSH Thiamine HCl (Vitamin B1) 100 mg PO DAILYCM [facility] Stop: 01/06/18 08:01 Trazodone HCl (Desyrel) 50 mg PO QHS PRN PRN PRN Reason: INSOMNIA Medical Necessity - Tobacco Use Smoking Status: Never smoker Tobacco Use: Chew - Per family likely 1 can per day usage. Assessment/Plan All Active Problems Suicide attempt (Acute) Benzodiazepine overdose (Acute) Alcohol intoxication (Acute) The patient is a 32 y/o M w/ PMHx: Anxiety and Depression, Prior Suicide Attempts and Ideation, EtOH Abuse (1 bottle vodka/day), Chew Tobacco (~ 1 can/day) who presents to the [facility] ED on 01/02/18 with history of ingestion of the 47 Xanax pills in addition to notable alcohol consumption in suicide attempt noted to also have written a letter stating goodbye and expressing his displeasure with God. (1) Anxiety and Depression/Bipolar Disorder/Borderline, Uncontrolled w/ Suicide attempt by BZD Intentional Overdose w/ Toxic Encephalopathy w/ Acute Hypoxic Respiratory Failure: Intubated in the ED, maintained on propofol in the ED. Admitted to the ICU, Satellite Tv Installer consulted. Fentanyl added later given onset agitation. Maintained on aggressive hydration, q AM CXR and ABG per ICU discretion, MRSA screen negative, maintained wen catheter, maintained restraints, aspiration precautions. Mag and phos normal. Trended labs stable. Given onset 01/03/18 increased agitation initiated on librium taper. Extubation 01/04/[address] Logan. Will need assessment per Speech prior to resumption oral medications. Once appropriate restart librium taper orally and likely plan start of evaluation per Crisis for facility on Friday given intake history and need for additional 24-48 hours of taper. (2) EtOH Abuse w/ Acute EtOH Withdrawal: Patient w/ routine consumption of 1 bottle vodka per day. Will maintain on CIWA protocol, MVI, thiamine and folic acid. Given history and presentation as expected onset increased agitation, initiated 01/03/18 on librium taper in addition to as needed Seroquel, Catapres, Bentyl, Vistaril, IV fluids, IV antiemetics, Tylenol as needed for pain. Mag, phos normal levels. Extubation 01/04/[address] Logan. Will need assessment per Speech prior to resumption oral medications. Once appropriate restart librium taper orally and likely plan start of evaluation per Crisis for facility on Friday given intake history and need for additional 24-48 hours of taper. (3) Prolonged QT: Admission EKG w/ SR with QT/QTc 386/482, trended EKGs, maintained on telemetry. (4) Chew Tobacco Abuse: Encouraged cessation, inpatient consultation per RT, NR if desired. (5) Normocytic Anemia, Unclear if Chronic: Admission Hgb 12.6, MCV 86.5, hydrating with #1 thus expect decrease, repeat CBC 12.4-->01/04/18 Hgb 10.7, encourage outpatient evaluation. (6) GI Prophylaxis: Famotidine. (7) DVT Prophylaxis: SCDs, lovenox. Code Visit Inpatient E&M: 21019 [facility] Hosp L3
--- NOTE | 2018-01-04 06:55 | PN_ITS ---
Patient Problems: Active and Suspected Problems Suicide attempt (Acute) Benzodiazepine overdose (Acute) Alcohol intoxication (Acute) Subjective: Patient overnight remained more calm and able to be extubated this morning however did have bout of emesis following with notable gastric disc distention noted on plain film. Patient following extubation noting very sore throats and some discomfort swelling but otherwise no acute complaints. Patient admitting to suicidal intentions and ongoing depression in addition to ability to confirm history of bipolar disorder, borderline, possibly personality disorder previously seeing a psychiatrist in town who recently left despite her encouragement to follow-up with a named psychiatrist he did not do so and has not been evaluated recently. He does have notable evidence of prior cutting on his upper extremities. Patient denies fevers, chills, nausea, emesis, abdominal pain, chest pain or dyspnea. Objective: Physical Examination: General: awake, alert, oriented x 3 and cooperative, seated upright in the ICU bed in no apparent distress, extubated. Skin: normal color, turgor, no icterus, cyanosis. HEENT: AT/NC, EOMI, PERRLA, mildly dry MM. Lungs: Improved, extubated, mildly diminished bases, no rales, ronchi or wheezing. Heart: Regular rate and rhythm; no gallop, rub audible. Abdomen: soft, NTTP, ND, normal BS Extremities: no cyanosis, clubbing, or edema. Neurological: patient awake, alert, oriented x 3; cognitive function intact; pupils equally reactive to light and accomodation; cranial nerves II-XII grossly normal, moving all 4 extremities, no focal deficits, strength improved, mildly to moderately globally decreased. Psychiatric: affect appears normal, he is able to discuss his recent suicide attempt, confirms diagnosis history, extremely talkative, no acute evidence of depressive or anxiety feelings currently despite acute presentation. Vitals/I&O's: Vital Signs Temp Pulse Resp BP Pulse Ox 99.9 F H 81 14 148/85 H 100 01/04/18 06:00 01/04/18 06:00 01/04/18 06:00 01/04/18 06:00 01/04/18 06:00 Oxygen Flow Rate (L/min) 30 Oxygen Delivery Method Mechanical Ventilator Weight: 181 lb 10.574 oz Body Mass Index (BMI) 23.4 Intake and Output for Last 24 Hours 01/02/18 01/03/18 01/04/18 23:59 23:59 23:59 Intake Total 2147.7 / 2147.7 4040.1 / 4040.1 3521 / 3521 Output Total 850 / 850 1025 / 1025 1300 / 1300 Balance 1297.7 / 1297.7 3015.1 / 3015.1 2221 / 2221 Laboratory Results 01/04/18 04:10: WBC 7.5, RBC 3.89 L, Hgb 10.7 L, Hct 34.4 L, MCV 88.4, MCH 27.5 , MCHC 31.1 L, RDW 15.2 H, RDW Differential 49.2 H, Plt Count 146 L, MPV 9.5, Immature Gran % (Auto) 0.300, Neut % (Auto) 64.8, Lymph % (Auto) 20.3, [place] % ( Auto) 11.1 H, Eos % (Auto) 3.2, Baso % (Auto) 0.3, Absolute Neuts (auto) 4.9, Absolute Lymphs (auto) 1.52, Total Counted Not Reportable 01/04/18 04:10: Sodium 142, Potassium 3.8, Chloride 106, Carbon Dioxide 28.0, Anion Gap 8, BUN 15, Creatinine 1.11, Estim Creat Clear Calc 103.89, Est GFR ( MDRD) Af Amer 98, Est GFR (MDRD) Non-Af 81, BUN/Creatinine Ratio 13.5, Glucose 87, Calcium 8.0 L, Total Bilirubin 0.50, AST 20, ALT 29, Alkaline Phosphatase 44 L, Total Protein 5.5 L, Albumin 3.0 L, Globulin 2.5, Albumin/Globulin Ratio 1.2 Current Medications Acetaminophen (Tylenol) 500 mg PO Q4H PRN PRN PRN Reason: Temp > 100.4 F Bisacodyl (Dulcolax) 10 mg RECTAL DAILY PRN PRN Reason: Constipation Chlordiazepoxide (Librium) 50 mg PO TID PRN PRN; Taper PRN Reason: Alcohol Withdrawal Stop: 01/06/18 08:59 Chlorhexidine Gluconate () 15 ml PO BID [facility] Last Admin: 01/03/18 21:20 Dose: 15 ml Chlorhexidine Gluconate () 1 each TOPICAL DAILY [facility] Last Admin: 01/03/18 03:58 Dose: 1 each Dicyclomine HCl (Bentyl) 20 mg PO Q6H PRN PRN PRN Reason: abdominal discomfort Enoxaparin Sodium (Lovenox) 40 mg SC DAILY@1000 [facility] Last Admin: 01/03/18 09:31 Dose: 40 mg Famotidine (Pepcid) 20 mg GT BID [facility] Last Admin: 01/03/18 21:12 Dose: 20 mg [facility] Stop: 01/06/18 08:01 Hydroxyzine Pamoate (Vistaril Pamoate Capsule) 50 mg PO Q6H PRN PRN PRN Reason: Mild Anxiety (score 1/3) Sodium Chloride () 250 mls @ 15 mls/hr IV .[id number] PRN PRN Reason: SALINE FLUSH Enteral Nutritional Formula (Vital Af 1.2 Yonas Liquid) 1,000 mls @ 25 mls/hr GT .Q40H [facility] PRN Reason: Protocol Last Admin: 01/03/18 10:00 Dose: 25 mls/hr Ibuprofen (Motrin) 600 mg PO Q8H PRN PRN PRN Reason: Mild-Moderate Pain (1-5/10) Loperamide HCl (Imodium) 2 - 4 mg PO UD PRN PRN Reason: LOOSE STOOLS Lorazepam (Ativan) 2 mg IV Q2H PRN PRN; Protocol PRN Reason: CIWA score > 8 but <15 Last Admin: 01/03/18 14:57 Dose: 2 mg Lorazepam (Ativan) 2 mg IV UD PRN; Protocol PRN Reason: CIWA score >/=15. Lorazepam (Ativan) 2 mg GT Q2H PRN PRN; Protocol PRN Reason: CIWA score > 8 but <15 Lorazepam (Ativan) 2 mg GT UD PRN; Protocol PRN Reason: CIWA score >/=15. Magnesium Hydroxide (Milk Of Magnesia) 30 ml GT DAILY PRN PRN PRN Reason: Constipation Methocarbamol (Methocarbamol) 750 mg PO Q6H PRN PRN PRN Reason: Muscle Aches [facility]it[facility]itamin) [facility] Last Admin: 01/03/18 07:56 Dose: 1 tablet Ondansetron HCl (Zofran) 4 mg IV Q8H PRN PRN PRN Reason: NAUSEA Quetiapine Fumarate (Seroquel) 25 mg PO Q6H PRN PRN PRN Reason: agitation, anxiety Last Admin: 01/03/18 15:25 Dose: 25 mg Senna (Senokot) 1 tablet PO QHS PRN PRN PRN Reason: Constipation Senna/Docusate Sodium (Senokot-S, [place]-Colace) 2 tablet GT BID [facility] Last Admin: 01/03/18 21:12 Dose: 2 tablet Sodium Chloride () 5 - 30 ml IV UD PRN PRN Reason: SALINE FLUSH Thiamine HCl (Vitamin B1) 100 mg PO DAILYCM [facility] Stop: 01/06/18 08:01 Trazodone HCl (Desyrel) 50 mg PO QHS PRN PRN PRN Reason: INSOMNIA Medical Necessity - Tobacco Use Smoking Status: Never smoker Tobacco Use: Chew - Per family likely 1 can per day usage. Assessment/Plan All Active Problems Suicide attempt (Acute) Benzodiazepine overdose (Acute) Alcohol intoxication (Acute) The patient is a 32 y/o M w/ PMHx: Anxiety and Depression, Prior Suicide Attempts and Ideation, EtOH Abuse (1 bottle vodka/day), Chew Tobacco (~ 1 can/ day) who presents to the [facility] ED on 01/02/18 with history of ingestion of the 47 Xanax pills in addition to notable alcohol consumption in suicide attempt noted to also have written a letter stating goodbye and expressing his displeasure with God. (1) Anxiety and Depression/Bipolar Disorder/Borderline, Uncontrolled w/ Suicide attempt by BZD Intentional Overdose w/ Toxic Encephalopathy w/ Acute Hypoxic Respiratory Failure: Intubated in the ED, maintained on propofol in the ED. Admitted to the ICU, C[employer] Machine Program[employer] consulted. Fentanyl added later given onset agitation. Maintained on aggressive hydration, q AM CXR and ABG per ICU discretion, MRSA screen negative, maintained wen catheter, maintained restraints, aspiration precautions. Mag and phos normal. Trended labs stable. Given onset 01/03/18 increased agitation initiated on librium taper. Extubation per Dr. Logan. Will need assessment per Speech prior to resumption oral medications. Once appropriate restart librium taper orally and likely plan start of evaluation per Crisis for facility on Friday given intake history and need for additional 24-48 hours of taper. (2) EtOH Abuse w/ Acute EtOH Withdrawal: Patient w/ routine consumption of 1 bottle vodka per day. Will maintain on CIWA protocol, MVI, thiamine and folic acid. Given history and presentation as expected onset increased agitation, initiated 01/03/18 on librium taper in addition to as needed Seroquel, Catapres, Bentyl, Vistaril, IV fluids, IV antiemetics, Tylenol as needed for pain. Mag, phos normal levels. Extubation 01/04/[address] Logan. Will need assessment per Speech prior to resumption oral medications. Once appropriate restart librium taper orally and likely plan start of evaluation per Crisis for facility on Friday given intake history and need for additional 24-48 hours of taper. (3) Prolonged QT: Admission EKG w/ SR with QT/QTc 386/482, trended EKGs, maintained on telemetry. (4) Chew Tobacco Abuse: Encouraged cessation, inpatient consultation per RT, NR if desired. (5) Normocytic Anemia, Unclear if Chronic: Admission Hgb 12.6, MCV 86.5, hydrating with #1 thus expect decrease, repeat CBC 12.4-->01/04/18 Hgb 10.7, encourage outpatient evaluation. (6) GI Prophylaxis: Famotidine. (7) DVT Prophylaxis: SCDs, lovenox. Code Visit Inpatient E&M: 29064 [facility] Hosp L3
[2018-01-04] MEDS: Citalopram 20 MG Tablet PO (09:52)
[2018-01-04] MEDS: CHLORHEXIDINE GLUC 2% CLOTH 1 EACH TOWELETTE TOPICAL (09:52)
[2018-01-04] MEDS: 0.9% NaCl Peripheral Flush Adult/Peds IV (09:52)
[2018-01-04] MEDS: Folic Acid 1 MG Tablet PO (09:53)
[2018-01-04] MEDS: Thiamine Hydrochloride 100 MG Tablet PO (09:53)
[2018-01-04] MEDS: Enoxaparin 40 MG/0.4 ML Syringe SC (09:56)
[2018-01-04] MEDS: Multivitamins,Therapeutic Tablet 1 TABLET PO (10:10)
[2018-01-04] MEDS: QUEtiapine 25 MG Tablet PO ×2 (10:10→16:13)
[2018-01-04] MEDS: Famotidine 20 MG Tablet PO ×2 (10:36→21:29)
[2018-01-04] MEDS: chlordiazePOXIDE 25 MG Capsule 50 MG PO ×2 (11:16→19:20)
[2018-01-04] MEDS: hydrOXYzine PAM 25 MG Capsule 50 MG PO (13:14)
[2018-01-04] MEDS: BENZOCAINE/MENTHOL 1 LOZENGE MUCOUS MEM ×2 (16:38→19:20)
[2018-01-04] MEDS: QUEtiapine 25 MG Tablet 50 MG PO (21:29)
[2018-01-04] MEDS: traZODone 50 MG Tablet PO (21:29)
[2018-01-05] VITALS (12 sets, daily range): BP systolic 118–138; BP diastolic 62–93; PULSE 65–79; RESP 16–23; TEMP 37–37.5; O2SAT 96–98
[2018-01-05] MEDS: chlordiazePOXIDE 25 MG Capsule 50 MG PO (04:10)
[2018-01-05 04:28] LABS: Absolute Lymphocyte Count 1.58 X10^3/ul (0.83-4.51); Absolute Neutrophil Count 3.7 X10^3/uL (2.0-7.7); Basophil# 0.02 X10^3/uL; Basophil% 0.3 % (0-1); Eosinophil# 0.28 X10^3/uL; Eosinophils% 4.4 % (0-5); Hematocrit 38.1 % (40-54); Hemoglobin 12.2 g/dl (13.0-16.5); Lymphocyte # 1.58 X10^3/ul (4.0); Lymphocyte % 24.7 % (19-41); Mean Corpuscular Hgb 27.6 pg (27.0-32.0); Mean Corpuscular Volume 86.2 fL (80-94); Mean Platelet Vol. 9.5 fl (6.2-12.0); Monocyte# 0.84 X10^3/uL; Monocyte% 13.1 % (0-10); Neutrophil # 3.65 X10^3/uL (2.7-7.7); Neutrophil % 57.2 % (47-70); Platelet Count 182 K/mm3 (150-450); RBC Distribution Width CV 14.7 % (11.6-14.6); RBC Distribution Width SD 45.4 fl (35.1-43.9); Red Blood Count 4.42 M/mm3 (4.6-6.2); White Blood Count 6.4 K/mm3 (4.4-11.0)
[2018-01-05 04:39] LABS: POSITIVE COUNT NO; POSITIVE DIFFERENTIAL NO; POSITIVE MORPHOLOGY NO
[2018-01-05 04:40] LABS: AST(SGOT) 21 U/L (15-37); Alanine Aminotransfer ALT/SGPT 30 U/L (16-61); Albumin, Serum 3.2 g/dL (3.2-5.0); Alkaline Phosphatase 56 U/L (45-117); Anion Gap 9 (5-15); BUN 11 mg/dL (7-18); BUN/Creat Ratio 11.2 RATIO (10-20); Calcium,Total 8.5 mg/dL (8.5-10.1); Chloride 105 mmol/L (98-107); Creatinine, Serum 0.98 mg/dL (0.70-1.30); EST Glomerular Filtration Rate 93 mL/min (>60); Est Glom Filt Rate - Afr Amer 113 mL/min (>60); Estimated Creatinine Clearance 117.68 ml/min; Globulin 3.1 g/dL (2.2-4.2); Glucose 119 mg/dL (74-106); Potassium 3.6 mmol/L (3.5-5.1); Protein, Total 6.3 g/dL (6.4-8.2); Sodium Level 141 mmol/L (136-145)
--- NOTE | 2018-01-05 06:12 | PCM.PN.INT ---
Subjective: Patient extubated yesterday without difficulty. Patient did well overnight. Patient has only received as needed Librium and no Ativan has been required. Patient has remained hemodynamically stable on room air. No productive cough, fever or shortness of breath has been noted. General: Alert, Oriented x3, Cooperative, No apparent distress, Well developed, Well nourished, - - Speaks in full sentences. HEENT: Atraumatic, PERRLA, EOMI, Normocephalic, - - No scleral icterus or injection noted. Oral: Moist Mucosa, No Gingival or Mucosal Lesions/ Ulcerations Neck: Supple, No JVD, No Nodes, Trachea Midline Lungs: Clear to auscultation, Normal air movement, No rhonchi, No wheeze, No rales, - - Symmetric expansion. No dullness to percussion. Cardiovascular: Regular rate, Regular Rhythm, Normal S1, Normal S2, No murmurs, No rub noted, No Gallop Abdomen: Bowel Sounds Present, Soft, Non Tender, Non-Distended, Obese Extremities: No clubbing, No cyanosis, No edema, Capillary Refill Less than 3 Seconds Skin: No rashes, No breakdown Musculoskeletal: No Tenderness to Palpation of Joints or Extremities Lymphatic: No Cervical, Supraclavicular, or Inguinal Adenopathy Neurological: Cranial nerves II-XII grossly intact, Neuro grossly intact, Motor Exam 5/5 strength throughout Psych/Mental Status: Alert and oriented to time, place, person, mood and affect Vital Signs Temp Pulse Resp BP Pulse Ox 37.0 C 68 17 131/78 H 96 01/05/18 04:00 01/05/18 05:00 01/05/18 05:00 01/05/18 05:00 01/05/18 05:00 Oxygen Flow Rate (L/min) 2 Oxygen Delivery Method Room Air Weight: 82.4 kg Body Mass Index (BMI) 23.4 Intake and Output for Last 24 Hours 01/03/18 01/04/18 01/05/18 23:59 23:59 23:59 Intake Total 4040.1 / 4040.1 4481 / 4481 Output Total 1025 / 1025 4850 / 4850 Balance 3015.1 / 3015.1 -369 / -369 Labs (Last 48 Hours) 01/04/18 01/04/18 01/05/18 04:10 04:10 04:00 WBC 7.5 6.4 RBC 3.89 L 4.42 L Hgb 10.7 L 12.2 L Hct 34.4 L 38.1 L MCV 88.4 86.2 MCH 27.5 27.6 MCHC 31.1 L 32.0 RDW 15.2 H 14.7 H RDW Differential 49.2 H 45.4 H Plt Count 146 L 182 MPV 9.5 9.5 Immature Gran % (Auto) 0.300 0.300 Neut % (Auto) 64.8 57.2 Lymph % (Auto) 20.3 24.7 [place] % (Auto) 11.1 H 13.1 H Eos % (Auto) 3.2 4.4 Baso % (Auto) 0.3 0.3 Absolute Neuts (auto) 4.9 3.7 Absolute Lymphs (auto) 1.52 1.58 Total Counted Not Reportable Not Reportable Sodium 142 Potassium 3.8 Chloride 106 Carbon Dioxide 28.0 Anion Gap 8 BUN 15 Creatinine 1.11 Estim Creat Clear Calc 103.89 Est GFR (MDRD) Af Amer 98 Est GFR (MDRD) Non-Af 81 BUN/Creatinine Ratio 13.5 Glucose 87 Calcium 8.0 L Total Bilirubin 0.50 AST 20 ALT 29 Alkaline Phosphatase 44 L Total Protein 5.5 L Albumin 3.0 L Globulin 2.5 Albumin/Globulin Ratio 1.2 01/05/18 04:00 WBC RBC Hgb Hct MCV MCH MCHC RDW RDW Differential Plt Count MPV Immature Gran % (Auto) Neut % (Auto) Lymph % (Auto) [place] % (Auto) Eos % (Auto) Baso % (Auto) Absolute Neuts (auto) Absolute Lymphs (auto) Total Counted Sodium 141 Potassium 3.6 Chloride 105 Carbon Dioxide 27.0 Anion Gap 9 BUN 11 Creatinine 0.98 Estim Creat Clear Calc 117.68 Est GFR (MDRD) Af Amer 113 Est GFR (MDRD) Non-Af 93 BUN/Creatinine Ratio 11.2 Glucose 119 H Calcium 8.5 Total Bilirubin 0.30 AST 21 ALT 30 Alkaline Phosphatase 56 Total Protein 6.3 L Albumin 3.2 Globulin 3.1 Albumin/Globulin Ratio 1.0 Clinical Impression(s) from Imaging Studies Chest X-Ray 01/04/18 06:30 IMPRESSION: No acute findings in the lungs. Stomach is gaseously distended Electronically Signed: Pancho Parker, at 7:01 EDT Tel , Service support , Medical Necessity - Tobacco Use Smoking Status: Never smoker Tobacco Use: Chew - Per family likely 1 can per day usage. Assessment/Plan All Active Problems Suicide attempt (Acute) Benzodiazepine overdose (Acute) Alcohol intoxication (Acute) RECOMMENDATIONS: 1. Okay to contact crisis from my perspective, discontinue Librium 2. Continue thiamine, folate and as needed Ativan 3. Continue appropriate ICU prophylaxis 4. Hemodynamically stable on room air. Will sign off from pulmonary/critical care perspective IMPRESSIONS: 1. Acute respiratory failure The patient was intubated in the emergency department upon arrival due to depressed GCS and concern for airway protection. Patient was successfully extubated yesterday. Patient has been doing well on room air. Patient does not have any objective signs or symptoms of aspiration associated with yesterday's emesis. No repeat emesis has been noted. 2. Toxic encephalopathy Secondary to intentional benzodiazepine overdose coupled with acute alcohol intoxication. Back to baseline at this time. No as needed Ativan required overnight. 3. Intentional overdose/suicide attempt with history of alcohol dependence The patient is currently pink slipped and will require behavioral health evaluation, once medically stabilized. Patient can be reinitiated on Librium therapy following bedside swallow evaluation. Okay to contact crisis for evaluation from my perspective. Patient does have a sitter at the bedside. 4. History of tobacco dependence The patient reportedly chews tobacco as an outpatient. Cessation is advisable. Nicotine replacement therapy has been indicated. Code Visit Inpatient E&M: 73505 Subs Hosp L2
--- NOTE | 2018-01-05 06:17 | PN_ITS ---
Subjective: Patient extubated yesterday without difficulty. Patient did well overnight. Patient has only received as needed Librium and no Ativan has been required. Patient has remained hemodynamically stable on room air. No productive cough, fever or shortness of breath has been noted. General: Alert, Oriented x3, Cooperative, No apparent distress, Well developed, Well nourished, - - Speaks in full sentences. HEENT: Atraumatic, PERRLA, EOMI, Normocephalic, - - No scleral icterus or injection noted. Oral: Moist Mucosa, No Gingival or Mucosal Lesions/ Ulcerations Neck: Supple, No JVD, No Nodes, Trachea Midline Lungs: Clear to auscultation, Normal air movement, No rhonchi, No wheeze, No rales, - - Symmetric expansion. No dullness to percussion. Cardiovascular: Regular rate, Regular Rhythm, Normal S1, Normal S2, No murmurs, No rub noted, No Gallop Abdomen: Bowel Sounds Present, Soft, Non Tender, Non-Distended, Obese Extremities: No clubbing, No cyanosis, No edema, Capillary Refill Less than 3 Seconds Skin: No rashes, No breakdown Musculoskeletal: No Tenderness to Palpation of Joints or Extremities Lymphatic: No Cervical, Supraclavicular, or Inguinal Adenopathy Neurological: Cranial nerves II-XII grossly intact, Neuro grossly intact, Motor Exam 5/5 strength throughout Psych/Mental Status: Alert and oriented to time, place, person, mood and affect Vital Signs Temp Pulse Resp BP Pulse Ox 37.0 C 68 17 131/78 H 96 01/05/18 04:00 01/05/18 05:00 01/05/18 05:00 01/05/18 05:00 01/05/18 05:00 Oxygen Flow Rate (L/min) 2 Oxygen Delivery Method Room Air Weight: 82.4 kg Body Mass Index (BMI) 23.4 Intake and Output for Last 24 Hours 01/03/18 01/04/18 01/05/18 23:59 23:59 23:59 Intake Total 4040.1 / 4040.1 4481 / 4481 Output Total 1025 / 1025 4850 / 4850 Balance 3015.1 / 3015.1 -369 / -369 Labs (Last 48 Hours) 01/04/18 01/04/18 01/05/18 04:10 04:10 04:00 WBC 7.5 6.4 RBC 3.89 L 4.42 L Hgb 10.7 L 12.2 L Hct 34.4 L 38.1 L MCV 88.4 86.2 MCH 27.5 27.6 MCHC 31.1 L 32.0 RDW 15.2 H 14.7 H RDW Differential 49.2 H 45.4 H Plt Count 146 L 182 MPV 9.5 9.5 Immature Gran % (Auto) 0.300 0.300 Neut % (Auto) 64.8 57.2 Lymph % (Auto) 20.3 24.7 [place] % (Auto) 11.1 H 13.1 H Eos % (Auto) 3.2 4.4 Baso % (Auto) 0.3 0.3 Absolute Neuts (auto) 4.9 3.7 Absolute Lymphs (auto) 1.52 1.58 Total Counted Not Reportable Not Reportable Sodium 142 Potassium 3.8 Chloride 106 Carbon Dioxide 28.0 Anion Gap 8 BUN 15 Creatinine 1.11 Estim Creat Clear Calc 103.89 Est GFR (MDRD) Af Amer 98 Est GFR (MDRD) Non-Af 81 BUN/Creatinine Ratio 13.5 Glucose 87 Calcium 8.0 L Total Bilirubin 0.50 AST 20 ALT 29 Alkaline Phosphatase 44 L Total Protein 5.5 L Albumin 3.0 L Globulin 2.5 Albumin/Globulin Ratio 1.2 01/05/18 04:00 WBC RBC Hgb Hct MCV MCH MCHC RDW RDW Differential Plt Count MPV Immature Gran % (Auto) Neut % (Auto) Lymph % (Auto) [place] % (Auto) Eos % (Auto) Baso % (Auto) Absolute Neuts (auto) Absolute Lymphs (auto) Total Counted Sodium 141 Potassium 3.6 Chloride 105 Carbon Dioxide 27.0 Anion Gap 9 BUN 11 Creatinine 0.98 Estim Creat Clear Calc 117.68 Est GFR (MDRD) Af Amer 113 Est GFR (MDRD) Non-Af 93 BUN/Creatinine Ratio 11.2 Glucose 119 H Calcium 8.5 Total Bilirubin 0.30 AST 21 ALT 30 Alkaline Phosphatase 56 Total Protein 6.3 L Albumin 3.2 Globulin 3.1 Albumin/Globulin Ratio 1.0 Clinical Impression(s) from Imaging Studies Chest X-Ray 01/04/18 06:30 IMPRESSION: No acute findings in the lungs. Stomach is gaseously distended Electronically Signed: Pancho Parker, at 7:01 EDT Tel , Service support , Medical Necessity - Tobacco Use Smoking Status: Never smoker Tobacco Use: Chew - Per family likely 1 can per day usage. Assessment/Plan All Active Problems Suicide attempt (Acute) Benzodiazepine overdose (Acute) Alcohol intoxication (Acute) RECOMMENDATIONS: 1. Okay to contact crisis from my perspective, discontinue Librium 2. Continue thiamine, folate and as needed Ativan 3. Continue appropriate ICU prophylaxis 4. Hemodynamically stable on room air. Will sign off from pulmonary/ critical care perspective IMPRESSIONS: 1. Acute respiratory failure The patient was intubated in the emergency department upon arrival due to depressed GCS and concern for airway protection. Patient was successfully extubated yesterday. Patient has been doing well on room air. Patient does not have any objective signs or symptoms of aspiration associated with yesterday 's emesis. No repeat emesis has been noted. 2. Toxic encephalopathy Secondary to intentional benzodiazepine overdose coupled with acute alcohol intoxication. Back to baseline at this time. No as needed Ativan required overnight. 3. Intentional overdose/suicide attempt with history of alcohol dependence The patient is currently pink slipped and will require behavioral health evaluation, once medically stabilized. Patient can be reinitiated on Librium therapy following bedside swallow evaluation. Okay to contact crisis for evaluation from my perspective. Patient does have a sitter at the bedside. 4. History of tobacco dependence The patient reportedly chews tobacco as an outpatient. Cessation is advisable. Nicotine replacement therapy has been indicated. Code Visit Inpatient E&M: 89843 Subs Hosp L2
[2018-01-05] MEDS: Folic Acid 1 MG Tablet PO (08:16)
[2018-01-05] MEDS: Thiamine Hydrochloride 100 MG Tablet PO (08:16)
[2018-01-05] MEDS: Multivitamins,Therapeutic Tablet 1 TABLET PO (08:16)
--- NOTE | 2018-01-05 08:59 | PCM.PN.HOSP ---
Patient Problems: Active and Suspected Problems Suicide attempt (Acute) Benzodiazepine overdose (Acute) Alcohol intoxication (Acute) Subjective: coughing up some spit. no shortness of breath. Vitals/I&O's: Vital Signs Temp Pulse Resp BP Pulse Ox 37.1 C 67 16 119/77 96 01/05/18 07:00 01/05/18 07:00 01/05/18 07:00 01/05/18 07:00 01/05/18 07:10 Oxygen Flow Rate (L/min) 2 Oxygen Delivery Method Room Air Weight: 82.4 kg Body Mass Index (BMI) 23.4 Intake and Output for Last 24 Hours 01/03/18 01/04/18 01/05/18 23:59 23:59 23:59 Intake Total 4040.1 / 4040.1 4481 / 4481 240 / 240 Output Total 1025 / 1025 4850 / 4850 Balance 3015.1 / 3015.1 -369 / -369 240 / 240 General: Alert, No apparent distress HEENT: Atraumatic, Normocephalic Oral: Moist Mucosa, No Gingival or Mucosal Lesions/ Ulcerations Neck: No Nodes, Thyroid Normal Size and Texture Lungs: Clear to auscultation, Normal air movement, No rhonchi, No wheeze Cardiovascular: Regular rate, Regular Rhythm, Normal S1, Normal S2, No murmurs Abdomen: Bowel Sounds Present, Soft, Non Tender, Non-Distended, No Hepato-splenomegaly Extremities: No edema, No Calf Tenderness Laboratory Results 01/05/18 04:00: WBC 6.4, RBC 4.42 L, Hgb 12.2 L, Hct 38.1 L, MCV 86.2, MCH 27.6, MCHC 32.0, RDW 14.7 H, RDW Differential 45.4 H, Plt Count 182, MPV 9.5, Immature Gran % (Auto) 0.300, Neut % (Auto) 57.2, Lymph % (Auto) 24.7, [place] % (Auto) 13.1 H, Eos % (Auto) 4.4, Baso % (Auto) 0.3, Absolute Neuts (auto) 3.7, Absolute Lymphs (auto) 1.58, Total Counted Not Reportable 01/05/18 04:00: Sodium 141, Potassium 3.6, Chloride 105, Carbon Dioxide 27.0, Anion Gap 9, BUN 11, Creatinine 0.98, Estim Creat Clear Calc 117.68, Est GFR (MDRD) Af Amer 113, Est GFR (MDRD) Non-Af 93, BUN/Creatinine Ratio 11.2, Glucose 119 H, Calcium 8.5, Total Bilirubin 0.30, AST 21, ALT 30, Alkaline Phosphatase 56, Total Protein 6.3 L, Albumin 3.2, Globulin 3.1, Albumin/Globulin Ratio 1.0 Current Medications Acetaminophen (Tylenol) 500 mg PO Q4H PRN PRN PRN Reason: Temp > 100.4 F Bisacodyl (Dulcolax) 10 mg RECTAL DAILY PRN PRN Reason: Constipation Chlorhexidine Gluconate () 1 each TOPICAL DAILY [facility] Last Admin: 01/04/18 09:52 Dose: 1 each Citalopram Hydrobromide (Celexa) 20 mg PO DAILY [facility] Last Admin: 01/04/18 09:52 Dose: 20 mg Dicyclomine HCl (Bentyl) 20 mg PO Q6H PRN PRN PRN Reason: abdominal discomfort Enoxaparin Sodium (Lovenox) 40 mg SC DAILY@1000 [facility] Last Admin: 01/04/18 09:56 Dose: 40 mg Famotidine (Pepcid) 20 mg PO BID [facility] Last Admin: 01/04/18 21:29 Dose: 20 mg [facility] Stop: 01/06/18 08:01 Last Admin: 01/05/18 08:16 Dose: 1 mg Hydroxyzine Pamoate (Vistaril Pamoate Capsule) 50 mg PO Q6H PRN PRN PRN Reason: Mild Anxiety (score 1/3) Last Admin: 01/04/18 13:14 Dose: 50 mg Sodium Chloride () 250 mls @ 15 mls/hr IV .[id number] PRN PRN Reason: SALINE FLUSH Ibuprofen (Motrin) 600 mg PO Q8H PRN PRN PRN Reason: Mild-Moderate Pain (1-5/10) Loperamide HCl (Imodium) 2 - 4 mg PO UD PRN PRN Reason: LOOSE STOOLS Lorazepam (Ativan) 2 mg IV Q2H PRN PRN; Protocol PRN Reason: CIWA score > 8 but <15 Last Admin: 01/03/18 14:57 Dose: 2 mg Lorazepam (Ativan) 2 mg IV UD PRN; Protocol PRN Reason: CIWA score >/=15. Lorazepam (Ativan) 2 mg PO Q2H PRN PRN; Protocol PRN Reason: CIWA score > 8 but <15 Lorazepam (Ativan) 2 mg PO UD PRN; Protocol PRN Reason: CIWA score >/=15. Magnesium Hydroxide (Milk Of Magnesia) 30 ml GT DAILY PRN PRN PRN Reason: Constipation Methocarbamol (Methocarbamol) 750 mg PO Q6H PRN PRN PRN Reason: Muscle Aches Multivit[facility] ([facility]amin) [facility] Last Admin: 01/05/18 08:16 Dose: 1 tablet Nicotine (Nicoderm Cq (Pbkc)) 14 mg TRANSDERM. DAILY [facility] Last Admin: 01/04/18 10:36 Dose: 14 mg Ondansetron HCl (Zofran) 4 mg IV Q8H PRN PRN PRN Reason: NAUSEA Perphenazine (Perphenazine) 4 mg PO BID@0600,1200 [facility] Last Admin: 01/05/18 04:13 Dose: 4 mg Perphenazine (Perphenazine) 8 mg PO QHS [facility] Last Admin: 01/04/18 21:29 Dose: 8 mg Quetiapine Fumarate (Seroquel) 25 mg PO Q6H PRN PRN PRN Reason: agitation, anxiety Last Admin: 01/04/18 16:13 Dose: 25 mg Quetiapine [facility]ate (Seroquel) [facility] Last Admin: 01/04/18 21:29 Dose: 50 mg Senna (Senokot) 1 tablet PO QHS PRN PRN PRN Reason: Constipation Sodium Chloride () 5 - 30 ml IV UD PRN PRN Reason: SALINE FLUSH Last Admin: 01/04/18 09:52 Dose: 20 ml Thiamine HCl (Vitamin B1) [facility] Stop: 01/06/18 08:01 Last Admin: 01/05/18 08:16 Dose: 100 mg Throat Lozenges (Cepacol Sore Throat Lozenge) 1 lozenge MUCOUS MEM Q2H PRN PRN PRN Reason: SORE THROAT Last Admin: 01/04/18 19:20 Dose: 1 lozenge Trazodone HCl (Desyrel) 50 mg PO QHS PRN PRN PRN Reason: INSOMNIA Last Admin: 01/04/18 21:29 Dose: 50 mg Medical Necessity - Tobacco Use Smoking Status: Never smoker Tobacco Use: Chew - Per family likely 1 can per day usage. Assessment/Plan All Active Problems Suicide attempt (Acute) Benzodiazepine overdose (Acute) Alcohol intoxication (Acute) 1. Suicide attempt 2/2 BZD OD intubated in ED, extubated 01/04 Crisis to see Discussed with patient that he requires further help in coping with counseling. Will likely require inpatient help as this was an attempt, but afterwards will need long-term counseling as outpt will require a sitter until able to transferred to inpatient psych unit. medically stable for transfer to psych unit. 2. Alcohol abuse No WD at this time.
--- NOTE | 2018-01-05 09:03 | PN_ITS ---
Patient Problems: Active and Suspected Problems Suicide attempt (Acute) Benzodiazepine overdose (Acute) Alcohol intoxication (Acute) Subjective: coughing up some spit. no shortness of breath. Vitals/I&O's: Vital Signs Temp Pulse Resp BP Pulse Ox 37.1 C 67 16 119/77 96 01/05/18 07:00 01/05/18 07:00 01/05/18 07:00 01/05/18 07:00 01/05/18 07:10 Oxygen Flow Rate (L/min) 2 Oxygen Delivery Method Room Air Weight: 82.4 kg Body Mass Index (BMI) 23.4 Intake and Output for Last 24 Hours 01/03/18 01/04/18 01/05/18 23:59 23:59 23:59 Intake Total 4040.1 / 4040.1 4481 / 4481 240 / 240 Output Total 1025 / 1025 4850 / 4850 Balance 3015.1 / 3015.1 -369 / -369 240 / 240 General: Alert, No apparent distress HEENT: Atraumatic, Normocephalic Oral: Moist Mucosa, No Gingival or Mucosal Lesions/ Ulcerations Neck: No Nodes, Thyroid Normal Size and Texture Lungs: Clear to auscultation, Normal air movement, No rhonchi, No wheeze Cardiovascular: Regular rate, Regular Rhythm, Normal S1, Normal S2, No murmurs Abdomen: Bowel Sounds Present, Soft, Non Tender, Non-Distended, No Hepato- splenomegaly Extremities: No edema, No Calf Tenderness Laboratory Results 01/05/18 04:00: WBC 6.4, RBC 4.42 L, Hgb 12.2 L, Hct 38.1 L, MCV 86.2, MCH 27.6 , MCHC 32.0, RDW 14.7 H, RDW Differential 45.4 H, Plt Count 182, MPV 9.5, Immature Gran % (Auto) 0.300, Neut % (Auto) 57.2, Lymph % (Auto) 24.7, [place] % ( Auto) 13.1 H, Eos % (Auto) 4.4, Baso % (Auto) 0.3, Absolute Neuts (auto) 3.7, Absolute Lymphs (auto) 1.58, Total Counted Not Reportable 01/05/18 04:00: Sodium 141, Potassium 3.6, Chloride 105, Carbon Dioxide 27.0, Anion Gap 9, BUN 11, Creatinine 0.98, Estim Creat Clear Calc 117.68, Est GFR ( MDRD) Af Amer 113, Est GFR (MDRD) Non-Af 93, BUN/Creatinine Ratio 11.2, Glucose 119 H, Calcium 8.5, Total Bilirubin 0.30, AST 21, ALT 30, Alkaline Phosphatase 56, Total Protein 6.3 L, Albumin 3.2, Globulin 3.1, Albumin/Globulin Ratio 1.0 Current Medications Acetaminophen (Tylenol) 500 mg PO Q4H PRN PRN PRN Reason: Temp > 100.4 F Bisacodyl (Dulcolax) 10 mg RECTAL DAILY PRN PRN Reason: Constipation Chlorhexidine Gluconate () 1 each TOPICAL DAILY [facility] Last Admin: 01/04/18 09:52 Dose: 1 each Citalopram Hydrobromide (Celexa) 20 mg PO DAILY [facility] Last Admin: 01/04/18 09:52 Dose: 20 mg Dicyclomine HCl (Bentyl) 20 mg PO Q6H PRN PRN PRN Reason: abdominal discomfort Enoxaparin Sodium (Lovenox) 40 mg SC DAILY@1000 [facility] Last Admin: 01/04/18 09:56 Dose: 40 mg Famotidine (Pepcid) 20 mg PO BID [facility] Last Admin: 01/04/18 21:29 Dose: 20 mg [facility]olic [facility] ([facility]) [facility] Stop: 01/06/18 08:01 Last Admin: 01/05/18 08:16 Dose: 1 mg Hydroxyzine Pamoate (Vistaril Pamoate Capsule) 50 mg PO Q6H PRN PRN PRN Reason: Mild Anxiety (score 1/3) Last Admin: 01/04/18 13:14 Dose: 50 mg Sodium Chloride () 250 mls @ 15 mls/hr IV .[id number] PRN PRN Reason: SALINE FLUSH Ibuprofen (Motrin) 600 mg PO Q8H PRN PRN PRN Reason: Mild-Moderate Pain (1-5/10) Loperamide HCl (Imodium) 2 - 4 mg PO UD PRN PRN Reason: LOOSE STOOLS Lorazepam (Ativan) 2 mg IV Q2H PRN PRN; Protocol PRN Reason: CIWA score > 8 but <15 Last Admin: 01/03/18 14:57 Dose: 2 mg Lorazepam (Ativan) 2 mg IV UD PRN; Protocol PRN Reason: CIWA score >/=15. Lorazepam (Ativan) 2 mg PO Q2H PRN PRN; Protocol PRN Reason: CIWA score > 8 but <15 Lorazepam (Ativan) 2 mg PO UD PRN; Protocol PRN Reason: CIWA score >/=15. Magnesium Hydroxide (Milk Of Magnesia) 30 ml GT DAILY PRN PRN PRN Reason: Constipation Methocarbamol (Methocarbamol) 750 mg PO Q6H PRN PRN PRN Reason: Muscle Aches [facility]it[facility] ([facility]amin) [facility] Last Admin: 01/05/18 08:16 Dose: 1 tablet Nicotine (Nicoderm Cq (Pbkc)) 14 mg TRANSDERM. DAILY [facility] Last Admin: 01/04/18 10:36 Dose: 14 mg Ondansetron HCl (Zofran) 4 mg IV Q8H PRN PRN PRN Reason: NAUSEA Perphenazine (Perphenazine) 4 mg PO BID@0600,1200 [facility] Last Admin: 01/05/18 04:13 Dose: 4 mg Perphenazine (Perphenazine) 8 mg PO QHS [facility] Last Admin: 01/04/18 21:29 Dose: 8 mg Quetiapine Fumarate (Seroquel) 25 mg PO Q6H PRN PRN PRN Reason: agitation, anxiety Last Admin: 01/04/18 16:13 Dose: 25 mg Quetiapine [facility]) [facility] Last Admin: 01/04/18 21:29 Dose: 50 mg Senna (Senokot) 1 tablet PO QHS PRN PRN PRN Reason: Constipation Sodium Chloride () 5 - 30 ml IV UD PRN PRN Reason: SALINE FLUSH Last Admin: 01/04/18 09:52 Dose: 20 ml Thiamine HCl ([facility]itamin B1) [facility] Stop: 01/06/18 08:01 Last Admin: 01/05/18 08:16 Dose: 100 mg Throat Lozenges (Cepacol Sore Throat Lozenge) 1 lozenge MUCOUS MEM Q2H PRN PRN PRN Reason: SORE THROAT Last Admin: 01/04/18 19:20 Dose: 1 lozenge Trazodone HCl (Desyrel) 50 mg PO QHS PRN PRN PRN Reason: INSOMNIA Last Admin: 01/04/18 21:29 Dose: 50 mg Medical Necessity - Tobacco Use Smoking Status: Never smoker Tobacco Use: Chew - Per family likely 1 can per day usage. Assessment/Plan All Active Problems Suicide attempt (Acute) Benzodiazepine overdose (Acute) Alcohol intoxication (Acute) 1. Suicide attempt * 2/2 BZD OD * intubated in ED, extubated 01/04 * Crisis to see * Discussed with patient that he requires further help in coping with counseling. Will likely require inpatient help as this was an attempt, but afterwards will need long-term counseling as outpt * will require a sitter until able to transferred to inpatient psych unit. * medically stable for transfer to psych unit. 2. Alcohol abuse * No WD at this time.
--- NOTE | 2018-01-05 09:06 | DCINST_ITS ---
- Discharge Diagnoses Current Active Problems: Current Active and Chronic Problems Suicide attempt (Acute) Benzodiazepine overdose (Acute) Alcohol intoxication (Acute) Alcohol abuse (Chronic) Depression with anxiety (Chronic) Chewing tobacco nicotine dependence (Chronic) You will use the following diet at home:: No restrictions Your food should be the consistency of: Regular Call your doctor if you observe: Fever of 101 or Higher, Shortness of breath Allergies/Adverse Reactions: Allergies No Known Allergies Allergy (Verified 01/02/18 13:51) Medications to take at Discharge Citalopram Hydrobromide [Celexa] 20 mg PO DAILY 01/02/18 Perphenazine 4 mg PO BID 01/02/18 Perphenazine 8 mg PO QHS 01/02/18 Quetiapine Fumarate [Seroquel] 50 mg PO QHS 01/02/18 Acetaminophen [Tylenol] 500 mg PO Q4H PRN PRN tablet 01/05/18 Multivitamins,Therapeutic [Multivitamin] 1 tablet PO DAILYCM tablet 01/05/18 Primary Care Physician: Deonte Meneses DO [Primary Care Provider] - Within 2 Weeks Test Results: Test results from this visit will be discussed in further detail at your follow- up appointment, if applicable. Proposed Discharge Date: 01/05/18
--- NOTE | 2018-01-05 09:06 | PCM.DC.SUM ---
Discharge Date and Diagnosis - Problem List Patient Problems: Active and Suspected Problems Suicide attempt (Acute) Benzodiazepine overdose (Acute) Alcohol intoxication (Acute) Date of Admission: 01/02/18 Date of Discharge: 01/05/18 - Primary Discharge Diagnosis Active and Suspected Problems Suicide attempt (Acute) Benzodiazepine overdose (Acute) Alcohol intoxication (Acute) - Secondary Discharge Diagnosis Chronic Problems Alcohol abuse (Chronic) Depression with anxiety (Chronic) Chewing tobacco nicotine dependence (Chronic) Hospital Course and Treatment Imaging Results: Clinical Impression(s) from Imaging Studies KUB X-Ray 01/02/18 11:55 IMPRESSION: The orogastric tube is coiled about within the gastric fundus. Electronically Signed: Mati Mccloud, at 15:04 EDT Tel , Service support , Brain CT 01/02/18 13:16 IMPRESSION: No acute intracranial process. Electronically Signed: Mati Mccloud, at 14:48 EDT Tel , Service support , Chest X-Ray 01/02/18 14:05 IMPRESSION: No acute cardiopulmonary process. Electronically Signed: Mati Mccloud, at 15:05 EDT Tel , Service support , Chest X-Ray 01/02/18 16:40 IMPRESSION: No acute cardiopulmonary process. Lines and tubes as detailed above. Electronically Signed: Mati Mccloud, at 17:41 EDT Tel , Service support , Chest X-Ray 01/04/18 06:30 IMPRESSION: No acute findings in the lungs. Stomach is gaseously distended Electronically Signed: Pancho Parker, at 7:01 EDT Tel , Service support , Operations: None Procedures: Intubation Summary of Care Provided: The patient is a 32 year old M is with an intentional overdose after taking 47 Xanax. Patient was somnolent and obtunded and was intubated in the emergency room. Patient was ultimately extubated on the . Patient is otherwise been doing well subsequently. Patient is medically stable for transfer to the inpatient psychiatric unit. Crisis will evaluate and determine when that can occur. It is my feeling is this was a, fortunately, unsuccessful suicide attempts, that he should not go directly home. Patient ought go to inpatient unit and then from there to develop a plan in regards to his further outpatient follow-up and counseling. Patient does drink alcohol but did not have any evidence of any going into alcohol withdrawal. Prior to that time may been overlapped when he was intubated and sedated. [] Discharge Diet: No Restrictions Discharge Activity: Return to Normal Activity Call your doctor if you observe: Fever of 101 or Higher, Shortness of breath Home Medications: Medications to take at Discharge Citalopram Hydrobromide [Celexa] 20 mg PO DAILY 01/02/18 Perphenazine 4 mg PO BID 01/02/18 Perphenazine 8 mg PO QHS 01/02/18 Quetiapine Fumarate [Seroquel] 50 mg PO QHS 01/02/18 Acetaminophen [Tylenol] 500 mg PO Q4H PRN PRN tablet 01/05/18 Multivitamins,Therapeutic [Multivitamin] 1 tablet PO DAILYCM tablet 01/05/18 Primary Care Physician: Deonte Meneses DO [Primary Care Provider] - Within 2 Weeks Disposition: Psych Hospital or Unit Minutes spent on discharge:: 32 Patient Condition:: Stable Medical Necessity - Tobacco Use Smoking Status: Never smoker Tobacco Use: Chew - Per family likely 1 can per day usage. Meaningful Use Info Meaningful Use Diagnoses (Choose all that apply): None applicable Code Visit Inpatient E&M: 68389 Disch Hosp
[2018-01-05] MEDS: Famotidine 20 MG Tablet PO ×2 (09:39→21:23)
[2018-01-05] MEDS: Enoxaparin 40 MG/0.4 ML Syringe SC (09:40)
[2018-01-05] MEDS: Citalopram 20 MG Tablet PO (09:40)
--- NOTE | 2018-01-05 17:12 | CHAPLAIN ---
Type of Pastoral Visit _x__ Initial Visit ___ Follow-up Visit ___ On-call Visit ___ General Patient Visit ___ Spiritual Assessment ___ Family Conference ___ Bereavement ___ Rapid Response ___ Code Blue ___ Other (describe below) Pastoral Care Referral From _x__ Patient ___ Family ___ Nurse ___ Physician ___ Clinique Counter Manager ___ Boatbuilder Apprentice Wood ___ Other (describe below) Sacrament/Intervention _x__ Active listening ___ Anointing ___ Judaism ___ Bereavement ___ Communion _x__ Aliyah exploration ___ _x__ Life review _x__ Prayer ___ Reconciliation ___ Sacrament of Sick _x__ Supportive presence ___ Wedding ___ Other (describe below) Pastoral Comments patient is very open to talk about his life, feelings, wish to stop existing, anxieties,; pt says about his mental health history; pt has supportive family but lives alone; pt is concerned about what is next for him concerning psych hospitalization, new job, how to continue living; pt admits to fear of and what will happen to him spiritually; pt has Alevism aliyah background and has been baptized; pt is very talkative and appears to be very honest about his situation and open to spiritual support; pt welcomes prayer and future visits
[2018-01-05] MEDS: BENZOCAINE/MENTHOL 1 LOZENGE MUCOUS MEM ×2 (17:27→19:37)
[2018-01-05] MEDS: traZODone 50 MG Tablet PO (21:19)
[2018-01-05] MEDS: QUEtiapine 25 MG Tablet 50 MG PO (21:22)
== END 2018-01-05 22:10 | DRG 917 ==
LOC: ED 15:11 → ICU 15:55
PROVIDERS: Admitting Provider Family Medicine; Emergency Provider Emergency Medicine; Family Provider Family Medicine; PCP Family Medicine
DX: T42.4X2A Poisoning by benzodiazepines, intentional self-harm, initial encounter (principal); J96.01 Acute respiratory failure with hypoxia; G92 Toxic encephalopathy; T51.0X2A Toxic effect of ethanol, intentional self-harm, initial encounter; F10.129 Alcohol abuse with intoxication, unspecified; Y90.8 Blood alcohol level of 240 mg/100 ml or more; F41.8 Other specified anxiety disorders; R40.2432 Glasgow coma scale score 3-8, at arrival to emergency department; Z91.5 Personal history of self-harm; F17.220 Nicotine dependence, chewing tobacco, uncomplicated
CPT/HCPCS: 31500; 31720; 36600; 51702; 70450; 71045; 74018; 80053; 80307; 80320; 80329; 81001; 82803; 83735; 84100; 85025; 87641; 93005; 94002; 94003; 94640; 94660; 95831; 97802; 99251; 99285; J7030; A4216; G0463; G0480

== ENCOUNTER 2018-03-13 23:56 | Emergency (ER) | payer OTHER, SELFPAY ==
[2018-03-13 23:57] VITALS: BP 81/55; PULSE 89; RESP 14; TEMP 36.4; O2SAT 97; BMI 23.8
[2018-03-14] VITALS (10 sets, daily range): BP systolic 119–129; BP diastolic 70–79; PULSE 75–86; RESP 14–20; O2SAT 95–98
[2018-03-14] MEDS: LORazepam 2 MG/ML Syringe 1 MG IV (00:50)
[2018-03-14 01:48] LABS: Absolute Lymphocyte Count 2.42 X10^3/ul (0.83-4.51); Absolute Neutrophil Count 2.9 X10^3/uL (2.0-7.7); Basophil# 0.04 X10^3/uL; Basophil% 0.7 % (0-1); Eosinophil# 0.17 X10^3/uL; Eosinophils% 2.9 % (0-5); Hematocrit 40.1 % (40-54); Hemoglobin 12.8 g/dl (13.0-16.5); Lymphocyte # 2.42 X10^3/ul (4.0); Lymphocyte % 40.9 % (19-41); Mean Corp Hgb Conc 31.9 g/gl (32-36); Mean Corpuscular Hgb 25.8 pg (27.0-32.0); Mean Corpuscular Volume 80.8 fL (80-94); Mean Platelet Vol. 9.4 fl (6.2-12.0); Monocyte# 0.36 X10^3/uL; Monocyte% 6.1 % (0-10); Neutrophil # 2.89 X10^3/uL (2.7-7.7); Neutrophil % 48.9 % (47-70); POSITIVE COUNT NO; POSITIVE DIFFERENTIAL NO; POSITIVE MORPHOLOGY NO; Platelet Count 311 K/mm3 (150-450); RBC Distribution Width CV 13.5 % (11.6-14.6); RBC Distribution Width SD 39.3 fl (35.1-43.9); Red Blood Count 4.96 M/mm3 (4.6-6.2); White Blood Count 5.9 K/mm3 (4.4-11.0)
[2018-03-14 01:58] LABS: ALB/GLOB Ratio 1.3 RATIO (0.9-2.4); AST(SGOT) 25 U/L (15-37); Alanine Aminotransfer ALT/SGPT 33 U/L (16-61); Albumin, Serum 4.2 g/dL (3.2-5.0); Alkaline Phosphatase 64 U/L (45-117); Anion Gap 8 (5-15); BUN 9 mg/dL (7-18); BUN/Creat Ratio 7.8 RATIO (10-20); Calcium,Total 8.3 mg/dL (8.5-10.1); Chloride 105 mmol/L (98-107); Creatinine, Serum 1.15 mg/dL (0.70-1.30); EST Glomerular Filtration Rate 78 mL/min (>60); Est Glom Filt Rate - Afr Amer 94 mL/min (>60); Estimated Creatinine Clearance 94.34 ml/min; Globulin 3.2 g/dL (2.2-4.2); Glucose 98 mg/dL (74-106); Potassium 3.7 mmol/L (3.5-5.1); Protein, Total 7.4 g/dL (6.4-8.2); Sodium Level 139 mmol/L (136-145)
[2018-03-14] MEDS: DiphenhydrAMINE 25 MG Capsule 50 MG PO (02:24)
[2018-03-14 02:43] LABS: Amphetamine Urine VISTA NEGATIVE (<1000 ng/mL); Barbiturate Urine VISTA NEGATIVE (< 200 ng/mL); Benzodiazepine Urine VISTA NEGATIVE (< 200 ng/mL); Cocaine Urine VISTA NEGATIVE (< 300 ng/mL); Ecstacy Urine VISTA NEGATIVE (< 500 ng/mL); Methadone Urine VISTA NEGATIVE (< 300 ng/mL); PCP Urine VISTA NEGATIVE (< 25 ng/mL); THC Urine VISTA NEGATIVE (< 50 ng/mL); Vista UDS pH Range 5
[2018-03-14 02:46] LABS: Mucous, Urine 0 SEEN /hpf (<or=2+); Red Blood Cells-Urine 0 SEEN /hpf (0-5); White Blood Cells 0 SEEN /hpf (0-5)
[2018-03-14 02:50] LABS: Color, Urine Yellow (Yellow); Glucose, Dipstick Normal (Normal); Ketone-Dipstick Negative (Negative); Leukocyte Esterase-Dipstick Negative /ul (Negative); Nitrite-Dipstick Negative (Negative); Occult Blood-Urine Negative /ul (Negative); Protein-Dipstick Negative (Negative); Specific Gravity, Urine 1.015 (1.002-1.030); Urine Bilirubin Dipstick Negative (Negative); Urine Clarity Clear (Clear); Urine Urobilinogen Normal (Normal)
[2018-03-14 02:56] LABS: Bacteria RARE /hpf (None Seen); Squamous Epithelial Cells - UA 0-5 SEEN /hpf (0-5)
--- NOTE | 2018-03-14 03:44 | ED.DCSUM_ITS ---
- ER Visit Summary Date of Service: 03/14/18 Chief Complaint: Suicidal ideation History of Present Illness: The patient is a 32 M who presents with suicidal ideation. He states he is not sure how the ambulance became involved. He was texting with a friend. He is uncertain if they called. He states that he has been having increased suicidal thoughts for the past 1 week. He has had some lower abdominal pain and diarrhea the past 3-4 days as well. No fevers chest pain shortness of breath vomiting. He does have a prior history of suicidal with prior suicide attempt earlier this year with a benzodiazepine overdose which required intubation and ICU management. Physical Examination: Afebrile initial blood pressure was 81/55 but when repeated was 116/67 Moist mucous membranes Heart regular rate and rhythm Lungs clear Abdomen soft Alert Patient appears clinically intoxicated and reports of suicidal ideation Test Results: CBC CMP notable for hemoglobin 12.8. Urine drug screen negative. Serum alcohol 296. Emergency Department Course and Treatment: Given patient's prior history and vocalizing suicidal thoughts patient will need to transfer. Patient will be evaluated by crisis once clinically sober. Given the degree of his intoxication this will likely occur after the patient will be turned over to the morning physician. Treatment Plan: [] Disposition: Pending reevaluation and crisis evaluation Impression: Suicidal ideation Acute alcohol intoxication This note was generated with [employer] dictation software. It may contain incorrect words, spelling, and punctuation that were not noted in review of the chart prior to signing ED Disposition - Plan for ED Patient: Chief Complaint: Suicidal Referrals: Deonte Meneses DO [Primary Care Provider] -
--- NOTE | 2018-03-14 07:32 | NURSING ---
PT RESTING EYES CLOSED ON MONITOR, SITTER IN ROOM.
--- NOTE | 2018-03-14 09:24 | NURSING ---
SAMMI, CRISIS, HERE
[2018-03-14] MEDS: Ondansetron 4 MG/2 ML Vial IV (10:37)
--- NOTE | 2018-03-14 12:47 | ED.RN ---
CALLED [facility] FOR TRANSPORT. ETA IS 1600
== END 2018-03-14 16:40 ==
PROVIDERS: Emergency Provider Emergency Medicine; Family Provider Family Medicine; PCP Family Medicine
DX: R45.851 Suicidal ideations (principal); F10.129 Alcohol abuse with intoxication, unspecified; Y90.8 Blood alcohol level of 240 mg/100 ml or more
CPT/HCPCS: 80053; 80307; 80320; 81001; 85025; 96374; 96375; 99281; A4216; G0480; J2405

== ENCOUNTER 2018-06-23 22:30 | Emergency (ER) | payer OTHER, SELFPAY ==
[2018-06-23 22:31] VITALS: BP 170/130
[2018-06-23 22:32] VITALS: RESP 24; TEMP 35.8; O2SAT 96; BMI 21.2
[2018-06-23] MEDS: Ziprasidone IM 20 MG/ML VIAL IM (22:47)
--- NOTE | 2018-06-23 22:48 | ED.DCSUM_ITS ---
- ER Visit Summary Date of Service: 06/23/18 Chief Complaint: [] Suicidal ideation, threatened to kill himself and others with swords History of Present Illness: The patient is a 32 M [] history of hypertension, unspecified behavioral health disorder drug abuse, currently threatened to kill himself notified the father who became concerned EMS or police were called when they made access to his residence there was some difficulty getting in as he had barricaded the door other was debrided from the door when they arrived there apparently were sores and other sharp objects that he reached for police then restrain him and he was brought to the emergency department. The patient states he simply wants to using the sorts, he indicates that if he would he basically would feel better so would others. He is also verbalizing threats to kill hospital staff who will not let him leave so he can kill himself, there is some history of behavioral health disorder that is unspecified, he does admit to drinking alcohol and using some other medications such as sedatives, he is not specific he did not take anything such as aspirin or acetaminophen, he is awake he is alert he is a very fit individual, he cannot be re directed or verbally counseled and so he is basically in four-point rosa for his protection as well as protection of staff and he is struggling against the restraints, banding discharge we have tried to redirect him without success and he is treated with Geodon 20 mg IM with an additional Ativan 2 mg IM if needed Physical Examination: [] He is awake and alert 170/80 General, no distress resting comfortably HEENT is generally unremarkable The neck is supple no adenopathy Cardiovascular, regular rate and rhythm Lungs, clear bilateral Abdomen, soft nontender Extremities, no clubbing cyanosis or edema Neurologic, awake alert answering questions appropriately moving all 4 extremities, he is very aggressive towards staff threatening to inflict bodily harm and as a result we have placed in four-point restraints, as above, because he continues to be quite violent and threatening and unable to redirect him he is also given medications as above Test Results: [] Emergency Department Course and Treatment: [] Time we will continue to monitor his condition provide physical and chemical restraints as clinically indicated to support his health his safety as well as staff safety and provide him the appropriate care, we have asked mental health services to see him Treatment Plan: [] The labs are pending and they will be on the chart Disposition: [] Mental health evaluation team Impression: [] Suicidal ideation, homicidal ideation again staff noncompliance drug abuse This note was generated with [employer] software. It may contain incorrect words, spelling, and punctuation that were not noted in review of the chart prior to signing ED Disposition - Plan for ED Patient: Referrals: Deonte Meneses DO [Primary Care Provider] -
--- NOTE | 2018-06-23 23:04 | ED.RN ---
PT WAS REQUESTING A KNIFE TO HARM HIMSELF, THEN ATTEMPTED TO KICK S.O. OFFICER AT FOOT OF BED WHILE IN LOCKED RESTRAINTS. S.O. OFFICER REPORTED EN-ROUTE PT ATTEMPTED TO KICK OFFICER IN THE BALLS AND ASKED OFFICER IF HE WAS WEARING A CUP FOR PROTECTION. PT WAS INAPPROPRIATE TOWARDS FEMALE STAFF MEMBERS SMILING AND SAYING YOUR HOT AND YOU HAVE A CUTE NOSE.
--- NOTE | 2018-06-23 23:09 | CM.ED ---
SOCIAL WORK NOTE DISCUSSED CASE WITH NURSING. PT WITH SUICIDAL IDEATIONS. PT WILL REQUIRE CRISIS EVALUATION ONCE MEDICALLY CLEARED. MICHAEL ADHIKARI, TUBE ROLLER, STAPLER MACHINE.
[2018-06-23 23:15] VITALS: BP 120/52; PULSE 100; RESP 20; O2SAT 96
[2018-06-24] VITALS (13 sets, daily range): BP systolic 83–146; BP diastolic 40–75; PULSE 74–100; RESP 15–18; O2SAT 88–100
[2018-06-24 00:40] LABS: Absolute Lymphocyte Count 1.52 X10^3/ul (0.83-4.51); Absolute Neutrophil Count 2.6 X10^3/uL (2.0-7.7); Basophil# 0.03 X10^3/uL; Basophil% 0.7 % (0-1); Eosinophil# 0.05 X10^3/uL; Eosinophils% 1.1 % (0-5); Hematocrit 42.5 % (40-54); Hemoglobin 13.5 g/dl (13.0-16.5); Lymphocyte # 1.52 X10^3/ul (4.0); Lymphocyte % 33.6 % (19-41); Mean Corp Hgb Conc 31.8 g/gl (32-36); Mean Corpuscular Volume 78.7 fL (80-94); Monocyte% 6.6 % (0-10); Neutrophil # 2.62 X10^3/uL (2.7-7.7); Neutrophil % 57.8 % (47-70); Platelet Count 252 K/mm3 (150-450); RBC Distribution Width CV 16.4 % (11.6-14.6); White Blood Count 4.5 K/mm3 (4.4-11.0)
[2018-06-24 00:46] LABS: POSITIVE COUNT NO; POSITIVE DIFFERENTIAL NO; POSITIVE MORPHOLOGY NO
[2018-06-24 00:50] LABS: Anion Gap 13 (5-15); BUN 13 mg/dL (7-18); BUN/Creat Ratio 14.5 RATIO (10-20); Calcium,Total 8.1 mg/dL (8.5-10.1); Chloride 102 mmol/L (98-107); EST Glomerular Filtration Rate 103 mL/min (>60); Est Glom Filt Rate - Afr Amer 125 mL/min (>60); Estimated Creatinine Clearance 120.87 ml/min; Glucose 86 mg/dL (74-106); Potassium 3.5 mmol/L (3.5-5.1); Sodium Level 139 mmol/L (136-145)
[2018-06-24 01:09] LABS: Acetaminophen (Tylenol) Level < 2.0 ug/mL (10.0-30.0); Salicylate < 1.7 mg/dL (2.8-20.0)
--- NOTE | 2018-06-24 01:09 | ED.RN ---
PT COOPERATIVE AND DR. RENEE INFORMED OF PT'S IMPROVEMENT OF BEHAVIOR, PT APOLOGIZED FOR HIS LANGUAGE. PT THEN FELL ASLEEP, RESPIRATIONS EVEN AND UNLABORED. ALL RESTRAINTS REMOVED.
--- NOTE | 2018-06-24 02:49 | ED.RN ---
MOTHER CALLED IN TO MAKE SURE THIS PT WILL SEE CRISIS BEFORE DISCHARGE, SHE WAS INFORMED THAT HE WILL BE REFERRED TO CRISIS WHEN HE IS MEDICALLY CLEARED. MOTHER ALSO REQUESTED TO BE CALLED ONCE IT IS DETERMINED TO BE RELEASED OR TRANSFERRED. PHONE NUMBER WAS CONFIRMED TO BE CORRECT IN THE DEMOGRAPHICS.
[2018-06-24 06:59] LABS: Amphetamine Urine VISTA NEGATIVE (<1000 ng/mL); Barbiturate Urine VISTA NEGATIVE (< 200 ng/mL); Benzodiazepine Urine VISTA NEGATIVE (< 200 ng/mL); Cocaine Urine VISTA NEGATIVE (< 300 ng/mL); Ecstacy Urine VISTA NEGATIVE (< 500 ng/mL); Methadone Urine VISTA NEGATIVE (< 300 ng/mL); PCP Urine VISTA NEGATIVE (< 25 ng/mL); THC Urine VISTA NEGATIVE (< 50 ng/mL); Vista UDS pH Range 5
--- NOTE | 2018-06-24 08:31 | NURSING ---
JOSEFINA, CRISIS, CALLED. SHE WILL BE OVER SOON SHE CAN
--- NOTE | 2018-06-24 09:31 | NURSING ---
JOSEFINA, CRISIS, HERE
--- NOTE | 2018-06-24 11:48 | EKG12_ITS ---
Test Reason : MEDICAL CLEARANCE Blood Pressure : / mmHG Vent. Rate : 100 BPM Atrial Rate : 100 BPM P-R Int : 126 ms QRS Dur : 088 ms QT Int : 366 ms P-R-T Axes : 077 095 067 degrees QTc Int : 472 ms Normal sinus rhythm Rightward axis Borderline ECG Confirmed by NEVAEH ANDRADE, MALU ([id number]), news copy editor KIERRA TONEY ([id number]) on 06/30/2018 8:53:20 AM Referred By: DEBRA/JANIS Confirmed By:MALU HERRING MD
[2018-06-24] MEDS: LORazepam 1 MG Tablet PO (12:08)
[2018-06-24] MEDS: Nicotine Polacrilex 2 MG GUM PO ×2 (12:23→16:05)
[2018-06-24 12:42] LABS: AST(SGOT) 38 U/L (15-37); Alanine Aminotransfer ALT/SGPT 42 U/L (16-61); Albumin, Serum 5.1 g/dL (3.2-5.0); Alkaline Phosphatase 75 U/L (45-117); Bilirubin, Direct 0.13 mg/dL (0.00-0.30); Globulin 3.4 g/dL (2.2-4.2); Protein, Total 8.5 g/dL (6.4-8.2)
[2018-06-24 14:00] LABS: Bacteria 0 SEEN /hpf (None Seen); Mucous, Urine 0 SEEN /hpf (<or=2+); Red Blood Cells-Urine 0 SEEN /hpf (0-5); Squamous Epithelial Cells - UA 0 SEEN /hpf (0-5); White Blood Cells 0 SEEN /hpf (0-5)
[2018-06-24 14:04] LABS: Color, Urine Yellow (Yellow); Glucose, Dipstick Normal (Normal); Ketone-Dipstick 15 mg/dl (Negative); Leukocyte Esterase-Dipstick Negative /ul (Negative); Nitrite-Dipstick Negative (Negative); Occult Blood-Urine Negative /ul (Negative); Protein-Dipstick Negative (Negative); Specific Gravity, Urine 1.025 (1.002-1.030); Urine Bilirubin Dipstick Negative (Negative); Urine Clarity Clear (Clear); Urine Urobilinogen Normal (Normal)
--- NOTE | 2018-06-24 18:11 | ED.RN ---
PT LEAVING VIA SQUAD TO [facility]
== END 2018-06-24 18:11 ==
LOC: ED 23:06
PROVIDERS: Emergency Medicine; Emergency Provider Emergency Medicine; Family Provider Family Medicine; PCP Family Medicine
DX: R45.851 Suicidal ideations (principal); R45.850 Homicidal ideations; F19.10 Other psychoactive substance abuse, uncomplicated; F10.129 Alcohol abuse with intoxication, unspecified; F91.8 Other conduct disorders; Z79.899 Other long term (current) drug therapy; Y90.8 Blood alcohol level of 240 mg/100 ml or more
CPT/HCPCS: 36415; 80048; 80076; 80307; 80320; 80329; 81001; 85025; 93005; 96372; 99285; G0480; J3486

== ENCOUNTER 2018-07-17 14:35 | Inpatient (IN) | payer OTHER, SELFPAY ==
[2018-07-17] VITALS (15 sets, daily range): BP systolic 105–140; BP diastolic 44–82; PULSE 71–100; RESP 11–19; TEMP 35.4–37.7; O2SAT 96–100; BMI 24.0; BMI 22.7
--- NOTE | 2018-07-17 15:08 | CT_ITS ---
STUDY: CT BRAIN WITHOUT CONTRAST REASON FOR EXAM: Male, 32 years old. Trauma RADIATION DOSAGE (If Supplied By Facility): CTDIvol = ( 44.99 ) mGy, DLP = ( 863.60 ) mGycm TECHNIQUE: Transaxial CT imaging of the brain was performed without administration of intravenous contrast material. Individualized dose optimization techniques were used for this CT. COMPARISON: January 02, 2018 CT head FINDINGS: Normal soft tissue structures. Normal calvarium. Normal size ventricles and extra-axial spaces for the patient's age. Normal white matter tracts of the cerebral hemispheres. Normal basal ganglia and thalami. Normal brainstem. Normal cerebellum. There is no intracranial hemorrhage. There are no findings of an acute ischemic infarction. Normal visualized paranasal sinuses. CT/Brain/Head without Contrast IMPRESSION: Normal unenhanced CT scan of the brain. Electronically Signed: Karina Cherry MD at 16:36 EDT Tel , Service support ,
--- NOTE | 2018-07-17 15:08 | RAD_ITS ---
STUDY: X-RAY CHEST REASON FOR EXAM: Male, 32 years old. Unresponsive TECHNIQUE: Single PA view of the chest. COMPARISON: Chest x-ray 01/04/2018 FINDINGS: The lungs are clear and expanded. There is no demonstrated pleural abnormality. Normal size heart. Normal mediastinum and lour[place]. Normal visualized pulmonary arteries. Normal visualized aortic arch and descending thoracic aorta. Normal visualized thoracic spine. Normal visualized ribs, clavicles, and shoulders. There is no demonstrated abnormality of the visualized soft tissue structures of the upper abdomen. RAD/Chest 1 View (Portable) IMPRESSION: Normal x-ray examination of the chest. Electronically Signed: Jesusita Roque, at 16:26 EDT Tel , Service support ,
--- NOTE | 2018-07-17 15:08 | EKG12_ITS ---
Test Reason : DYSRHYTHMIA Blood Pressure : / mmHG Vent. Rate : 078 BPM Atrial Rate : 078 BPM P-R Int : 152 ms QRS Dur : 090 ms QT Int : 458 ms P-R-T Axes : 079 095 065 degrees QTc Int : 522 ms Normal sinus rhythm Rightward axis Prolonged QT Abnormal ECG Confirmed by SULTANA ANDRADE, JACE ([id number]), film editor MARIA ISABEL YARBROUGH ([id number]) on 07/20/2018 1:55:31 PM Referred By: Cisco Chiang Confirmed By:JACE WEINBERG MD
--- NOTE | 2018-07-17 15:10 | CT_ITS ---
STUDY: CT CERVICAL SPINE WITHOUT CONTRAST REASON FOR EXAM: Male, 32 years old. Trauma RADIATION DOSAGE (If Supplied By Facility): CTDIvol = ( 24.11 ) mGy, DLP = ( 549.38 ) mGycm TECHNIQUE: High resolution transaxial imaging was performed without contrast material. Sagittal and coronal images were reconstructed. Individualized dose optimization techniques were used for this CT. COMPARISON: None FINDINGS: Normal craniovertebral junction. There are minimal degenerative changes of the anterior atlantoaxial articulation. Normal odontoid process. Normal cervical lordosis. Normal vertebral bodies and posterior osseous elements. C2-3: Normal endplates. Normal disc height and morphology. Normal central canal and intervertebral neuroforamina. C3-4: Normal endplates. Normal disc height and morphology. Normal central canal and intervertebral neuroforamina. C4-5: Normal endplates. Normal disc height and morphology. Normal central canal and intervertebral neuroforamina. C5-6: Normal endplates. Normal disc height and morphology. Normal central canal and intervertebral neuroforamina. C6-7: Normal endplates. Normal disc height and morphology. Normal central canal and intervertebral neuroforamina. C7-T1: Normal endplates. Normal disc height and morphology. Normal central canal and intervertebral neuroforamina. Normal visualized soft tissue structures. CT/Spine Cervical without Contras IMPRESSION: Normal unenhanced CT examination of the cervical spine. Electronically Signed: Karina Cherry MD at 16:39 EDT Tel , Service support ,
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
--- NOTE | 2018-07-17 15:15 | CM.ED ---
SOCIAL WORK NOTE CASE REVIEWED. PATIENT PRESENTS TO ED UNRESPONSIVE. PER OFFICERS, PATIENT WITH SUICIDE ATTEMPT AND LEFT SUICIDE NOTE. ANTICIPATE ADMISSION AT THIS TIME. MICHAEL ADHIKARI, TABLE HAND, OCCUPATIONAL THERAPY PROFESSOR.
[2018-07-17] MEDS: 0.9% Normal Saline 1,000 ML 999 ML IV ×2 (16:15→17:20)
[2018-07-17 16:33] LABS: CPK Total, Creatine Kinase 880 U/L (39-308)
[2018-07-17 16:37] LABS: Bacteria 0 SEEN /hpf (None Seen); Mucous, Urine 0 SEEN /hpf (<or=2+); Red Blood Cells-Urine 0 SEEN /hpf (0-5); Squamous Epithelial Cells - UA 0 SEEN /hpf (0-5); White Blood Cells 0 SEEN /hpf (0-5)
[2018-07-17 16:37] LABS: Absolute Lymphocyte Count 1.67 X10^3/ul (0.83-4.51); Absolute Neutrophil Count 3.5 X10^3/uL (2.0-7.7); Basophil# 0.02 X10^3/uL; Basophil% 0.4 % (0-1); Eosinophil# 0.01 X10^3/uL; Eosinophils% 0.2 % (0-5); Hematocrit 42.4 % (40-54); Hemoglobin 13.4 g/dl (13.0-16.5); Lymphocyte # 1.67 X10^3/ul (4.0); Lymphocyte % 30.1 % (19-41); Mean Corp Hgb Conc 31.6 g/gl (32-36); Mean Corpuscular Hgb 25.6 pg (27.0-32.0); Mean Corpuscular Volume 80.9 fL (80-94); Mean Platelet Vol. 8.9 fl (6.2-12.0); Monocyte# 0.32 X10^3/uL; Monocyte% 5.8 % (0-10); Neutrophil # 3.53 X10^3/uL (2.7-7.7); Neutrophil % 63.5 % (47-70); Platelet Count 232 K/mm3 (150-450); RBC Distribution Width CV 15.6 % (11.6-14.6); RBC Distribution Width SD 46.1 fl (35.1-43.9); Red Blood Count 5.24 M/mm3 (4.6-6.2); White Blood Count 5.6 K/mm3 (4.4-11.0)
[2018-07-17 16:38] LABS: POSITIVE COUNT NO; POSITIVE DIFFERENTIAL NO; POSITIVE MORPHOLOGY NO
[2018-07-17 16:47] LABS: Color, Urine Yellow (Yellow); Glucose, Dipstick Normal (Normal); Ketone-Dipstick Negative (Negative); Leukocyte Esterase-Dipstick Negative /ul (Negative); Nitrite-Dipstick Negative (Negative); Occult Blood-Urine Negative /ul (Negative); Protein-Dipstick Negative (Negative); Urine Bilirubin Dipstick Negative (Negative); Urine Clarity Clear (Clear); Urine Urobilinogen Normal (Normal)
[2018-07-17 16:50] LABS: ALB/GLOB Ratio 1.6 RATIO (0.9-2.4); AST(SGOT) 39 U/L (15-37); Alanine Aminotransfer ALT/SGPT 61 U/L (16-61); Albumin, Serum 4.5 g/dL (3.2-5.0); Alkaline Phosphatase 84 U/L (45-117); Anion Gap 13 (5-15); BUN 12 mg/dL (7-18); BUN/Creat Ratio 12.1 RATIO (10-20); Calcium,Total 8.3 mg/dL (8.5-10.1); Chloride 102 mmol/L (98-107); Creatinine, Serum 0.99 mg/dL (0.70-1.30); EST Glomerular Filtration Rate 92 mL/min (>60); Est Glom Filt Rate - Afr Amer 112 mL/min (>60); Estimated Creatinine Clearance 109.58 ml/min; Globulin 2.8 g/dL (2.2-4.2); Glucose 92 mg/dL (74-106); Potassium 4.1 mmol/L (3.5-5.1); Protein, Total 7.3 g/dL (6.4-8.2); Sodium Level 141 mmol/L (136-145)
[2018-07-17 16:54] LABS: Lactic Acid 3.6 mmol/L (0.4-2.0)
[2018-07-17 17:10] LABS: Amphetamine Urine VISTA NEGATIVE (<1000 ng/mL); Barbiturate Urine VISTA NEGATIVE (< 200 ng/mL); Benzodiazepine Urine VISTA NEGATIVE (< 200 ng/mL); Cocaine Urine VISTA NEGATIVE (< 300 ng/mL); Ecstacy Urine VISTA POSITIVE (< 500 ng/mL); Methadone Urine VISTA NEGATIVE (< 300 ng/mL); PCP Urine VISTA NEGATIVE (< 25 ng/mL); THC Urine VISTA NEGATIVE (< 50 ng/mL); Vista UDS pH Range 7
[2018-07-17 17:16] LABS: Acetaminophen (Tylenol) Level < 2.0 ug/mL (10.0-30.0); Salicylate < 1.7 mg/dL (2.8-20.0)
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
[2018-07-17 20:13] LABS: Reflex Lactate? Y
[2018-07-17] MEDS: 0.9% Normal Saline 1,000 ML 150 ML IV (20:19)
[2018-07-17 21:49] LABS: Lactic Acid 3.2 mmol/L (0.4-2.0)
[2018-07-17] MEDS: Haloperidol Lactate 5 MG/ML Vial IV (23:52)
[2018-07-18] VITALS (27 sets, daily range): BP systolic 90–135; BP diastolic 41–77; PULSE 82–106; RESP 12–17; TEMP 37.1–38.2; O2SAT 95–98
[2018-07-18] MEDS: 0.9% Normal Saline 1,000 ML 150 ML IV (02:50)
[2018-07-18 04:50] LABS: CPK Total, Creatine Kinase 653 U/L (39-308)
--- NOTE | 2018-07-18 05:55 | EKG12_ITS ---
Test Reason : AM EKG Blood Pressure : / mmHG Vent. Rate : 089 BPM Atrial Rate : 089 BPM P-R Int : 144 ms QRS Dur : 090 ms QT Int : 408 ms P-R-T Axes : 011 085 037 degrees QTc Int : 496 ms Normal sinus rhythm Prolonged QT Abnormal ECG Confirmed by SULTANA ANDRADE, JACE ([id number]), photography editor MARIA ISABEL YARBROUGH ([id number]) on 07/27/2018 11:59:30 AM Referred By: Cisco Chiang Confirmed By:JACE WEINBERG MD
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
[2018-07-18] MEDS: 0.9% Normal Saline 1,000 ML 75 ML IV ×2 (09:50→22:34)
--- NOTE | 2018-07-18 10:51 | CM.UR ---
Updated SIXTO Randall, since she planned on seeing this patient--that police remain at bedside with anticipation to take him to senior care upon discharge. Explained that Dr. Diaz has not cleared for dc d/t prolonged QT continues. Explained SW may only be able to give resources for him to reach out after he gets out of senior care. Carmen Oliva RN, [facility].
[2018-07-18] MEDS: Enoxaparin 40 MG/0.4 ML Syringe SC (12:20)
[2018-07-18] MEDS: Escitalopram Oxalate 10 MG Tablet PO (12:22)
[2018-07-18] MEDS: Gabapentin 100 MG Capsule PO ×2 (12:22→21:10)
--- NOTE | 2018-07-18 12:55 | CASEMGMT ---
Chart reviewed after handoff report received from RN BIBI. Patient remains in ICU with police supervision and is not yet medically ready for discharge. MIRELA Rao
[2018-07-18] MEDS: LORazepam 1 MG Tablet 2 MG PO (21:09)
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
[2018-07-19] VITALS (17 sets, daily range): BP systolic 112–155; BP diastolic 57–101; PULSE 85–124; RESP 16–29; TEMP 36.6–37.3; O2SAT 95–100
[2018-07-19] MEDS: LORazepam 1 MG Tablet 2 MG PO ×3 (03:00→21:12)
[2018-07-19] MEDS: Nicotine Polacrilex 2 MG GUM PO ×4 (03:43→13:21)
--- NOTE | 2018-07-19 05:55 | EKG12_ITS ---
Test Reason : AM Blood Pressure : / mmHG Vent. Rate : 098 BPM Atrial Rate : 098 BPM P-R Int : 132 ms QRS Dur : 090 ms QT Int : 400 ms P-R-T Axes : 021 097 072 degrees QTc Int : 510 ms Normal sinus rhythm Prolonged QT Abnormal ECG Confirmed by SULTANA ANDRADE, JACE ([id number]), image editor MARIA ISABEL YARBROUGH ([id number]) on 07/27/2018 12:08:26 PM Referred By: Cisco Chiang Confirmed By:JACE WEINBERG MD
[2018-07-19] MEDS: Gabapentin 100 MG Capsule PO ×3 (08:07→16:51)
[2018-07-19] MEDS: Escitalopram Oxalate 10 MG Tablet PO (08:55)
[2018-07-19] MEDS: Enoxaparin 40 MG/0.4 ML Syringe SC (08:55)
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
[2018-07-19] MEDS: chlordiazePOXIDE 25 MG Capsule 50 MG PO ×3 (10:17→21:11)
[2018-07-19] MEDS: 0.9% Normal Saline 1,000 ML 75 ML IV (13:23)
[2018-07-19] MEDS: LORazepam 2 MG/ML Syringe IV ×3 (19:13→23:47)
[2018-07-19] MEDS: 0.9% NaCl Peripheral Flush Adult/Peds IV (22:53)
[2018-07-20] VITALS (10 sets, daily range): BP systolic 129–133; BP diastolic 86–89; PULSE 66–152; RESP 16; TEMP 36.8–37.6; O2SAT 98–100
[2018-07-20] MEDS: Haloperidol Lactate 5 MG/ML Vial IV (00:20)
[2018-07-20] MEDS: LORazepam 2 MG/ML Syringe IV ×2 (01:49→03:54)
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
[2018-07-20] MEDS: chlordiazePOXIDE 25 MG Capsule 50 MG PO ×2 (04:08→12:16)
[2018-07-20 06:25] LABS: Anion Gap 7 (5-15); BUN 12 mg/dL (7-18); BUN/Creat Ratio 11.3 RATIO (10-20); Calcium,Total 8.9 mg/dL (8.5-10.1); Chloride 104 mmol/L (98-107); Creatinine, Serum 1.06 mg/dL (0.70-1.30); EST Glomerular Filtration Rate 85 mL/min (>60); Est Glom Filt Rate - Afr Amer 103 mL/min (>60); Estimated Creatinine Clearance 100.94 ml/min; Glucose 113 mg/dL (74-106); Magnesium 2.1 mg/dL (1.6-2.6); Potassium 3.7 mmol/L (3.5-5.1); Sodium Level 139 mmol/L (136-145)
[2018-07-20] MEDS: Gabapentin 100 MG Capsule PO ×2 (08:31→12:16)
[2018-07-20] MEDS: Multivitamins,Therapeutic Tablet 1 TABLET PO (08:31)
[2018-07-20] MEDS: Folic Acid 1 MG Tablet PO (08:31)
[2018-07-20] MEDS: Thiamine Hydrochloride 100 MG Tablet PO (08:31)
--- NOTE | 2018-07-20 09:00 | CASEMGMT ---
Social Work: Spoke with Deputy Chaudhary outside of patients room regarding patient's status with the [employer] department. Deputy Chaudhary states that patient is in custody of the [employer] department. Deputy Chaudhary states that the [employer]'s department is requesting that Crisis evaluates the patient at [facility] verses patient going to the [facility] half-way and Crisis evaluating there. Deputy Chaudhary also states that [facility] is aware of the patient and has a bed for patient today once patient is medially cleared. TC to Crisis to notify of impending crisis referral. Left a voice mail for Amina at Crisis to call this SW back. Updated supercharger repair supervisor, hospitalist, RNCM, community health nurse supervisor and unit SW that crisis will need to be consulted when medically ready. Will continue to follow to assist as needed. LEIGHANN Caraballo
--- NOTE | 2018-07-20 09:10 | EKG12_ITS ---
Test Reason : REPEAT Blood Pressure : / mmHG Vent. Rate : 076 BPM Atrial Rate : 076 BPM P-R Int : 138 ms QRS Dur : 088 ms QT Int : 404 ms P-R-T Axes : 030 088 044 degrees QTc Int : 454 ms Normal sinus rhythm Normal ECG When compared with ECG of 20-JUL-2018 10:04, MANUAL COMPARISON REQUIRED, DATA IS UNCONFIRMED Confirmed by NEVAEH ANDRADE, MALU ([id number]), newspaper managing editor KIERRA TONEY ([id number]) on 08/03/2018 5:26:43 PM Referred By: Cisco Chiang Confirmed By:MALU HERRING MD
[2018-07-20] MEDS: Escitalopram Oxalate 10 MG Tablet PO (09:47)
[2018-07-20] MEDS: Enoxaparin 40 MG/0.4 ML Syringe SC (09:47)
--- NOTE | 2018-07-20 12:22 | CASEMGMT ---
Social Work Note SW spoke with LEIGHANN Valladares, who states she spoke with [place] with pt. [place] with pt states they hope pt will be admitted to [facility] from [facility]. Trudy Cole states she will call crisis and pt will need to be evaluated by crisis once medically cleared. Liset Chavez ANIMAL ANATOMIST, REFUND SPECIALIST
--- NOTE | 2018-07-20 12:45 | CASEMGMT ---
Social Work: Return call from Amina at Crisis. Amina given crisis referral. Amina aware that [facility] will notify Crisis when patient is medically cleared. LEIGHANN Caraballo
--- NOTE | 2018-07-20 13:05 | CASEMGMT ---
Social Work: TC to [place], MS2 studio operations engineer in charge. Seble aware that Crisis referral has been made and that a worker will come once [facility] calls with medical clearance. Seble states that Rosy from Crisis is already here. Spoke with Rosy on the phone and she states she is waiting to speak with the hospitalist regarding medical clearance for psych placement at [facility] today. Will stay available to assist as needed. LEIGHANN Caraballo
[2018-07-20 13:27] LABS: Absolute Lymphocyte Count 1.67 X10^3/ul (0.83-4.51); Absolute Neutrophil Count 4.6 X10^3/uL (2.0-7.7); Basophil# 0.02 X10^3/uL; Basophil% 0.3 % (0-1); Eosinophil# 0.09 X10^3/uL; Eosinophils% 1.3 % (0-5); Hematocrit 40.2 % (40-54); Hemoglobin 12.8 g/dl (13.0-16.5); Lymphocyte # 1.67 X10^3/ul (4.0); Lymphocyte % 23.4 % (19-41); Mean Corp Hgb Conc 31.8 g/gl (32-36); Mean Corpuscular Hgb 25.6 pg (27.0-32.0); Mean Corpuscular Volume 80.4 fL (80-94); Mean Platelet Vol. 9.1 fl (6.2-12.0); Monocyte# 0.74 X10^3/uL; Monocyte% 10.3 % (0-10); Neutrophil # 4.62 X10^3/uL (2.7-7.7); Neutrophil % 64.6 % (47-70); Platelet Count 226 K/mm3 (150-450); RBC Distribution Width CV 15.9 % (11.6-14.6); White Blood Count 7.2 K/mm3 (4.4-11.0)
[2018-07-20 13:30] LABS: POSITIVE COUNT NO; POSITIVE DIFFERENTIAL NO; POSITIVE MORPHOLOGY NO
--- NOTE | 2018-07-20 13:58 | PCM.DC ---
- Discharge Diagnoses Current Active Problems: Current Active and Chronic Problems Overdose (Acute) Prolonged Q-T interval on ECG (Acute) You will use the following diet at home:: No restrictions Your food should be the consistency of: Regular Your liquids should be the consistency of: Regular/Thin Discharge Activity: Return to Normal Activity Weight Bearing Status: Weight bearing as tolerated Call your doctor if you observe: Fever of 101 or Higher, Increased palpitations (irregular heartbeat) Allergies/Adverse Reactions: Allergies No Known Allergies Allergy (Verified 07/17/18 17:35) Medications to take at Discharge Quetiapine Fumarate 100 mg PO QHS 06/23/18 Escitalopram Oxalate [Lexapro] 10 mg PO DAILY 07/17/18 Gabapentin [Neurontin] 200 mg PO TID 07/17/18 Naltrexone HCl 50 mg PO DAILY 07/17/18 traZODone [Desyrel] 50 mg PO QHS 07/17/18 Primary Care Physician: Deonte Meneses DO [Primary Care Provider] - Please follow up with your Primary Care Physician in: one week Test Results: Test results from this visit will be discussed in further detail at your follow-up appointment, if applicable. Proposed Discharge Date: 07/20/18
--- NOTE | 2018-07-20 14:01 | DCINST_ITS ---
- Discharge Diagnoses Current Active Problems: Current Active and Chronic Problems Overdose (Acute) Prolonged Q-T interval on ECG (Acute) You will use the following diet at home:: No restrictions Your food should be the consistency of: Regular Your liquids should be the consistency of: Regular/Thin Discharge Activity: Return to Normal Activity Weight Bearing Status: Weight bearing as tolerated Call your doctor if you observe: Fever of 101 or Higher, Increased palpitations (irregular heartbeat) Allergies/Adverse Reactions: Allergies No Known Allergies Allergy (Verified 07/17/18 17:35) Medications to take at Discharge Quetiapine Fumarate 100 mg PO QHS 06/23/18 Escitalopram Oxalate [Lexapro] 10 mg PO DAILY 07/17/18 Gabapentin [Neurontin] 200 mg PO TID 07/17/18 Naltrexone HCl 50 mg PO DAILY 07/17/18 traZODone [Desyrel] 50 mg PO QHS 07/17/18 Primary Care Physician: Deonte Meneses DO [Primary Care Provider] - Please follow up with your Primary Care Physician in: one week Test Results: Test results from this visit will be discussed in further detail at your follow- up appointment, if applicable. Proposed Discharge Date: 07/20/18
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
--- NOTE | 2018-07-20 14:23 | EKG12_ITS ---
Test Reason : Blood Pressure : / mmHG Vent. Rate : 083 BPM Atrial Rate : 083 BPM P-R Int : 138 ms QRS Dur : 090 ms QT Int : 392 ms P-R-T Axes : 064 090 063 degrees QTc Int : 460 ms Normal sinus rhythm Normal ECG When compared with ECG of 19-JUL-2018 04:54, MANUAL COMPARISON REQUIRED, DATA IS UNCONFIRMED Confirmed by NEVAEH ANDRADE, MALU ([id number]), loan expeditor KIERRA TONEY ([id number]) on 08/03/2018 5:27:04 PM Referred By: Cisco Chiang Confirmed By:MALU HERRING MD
== END 2018-07-20 15:00 | DRG 917 ==
LOC: ED 15:30 → ICU 20:25 → MS2 07-19 17:49
PROVIDERS: Internal Medicine; Emergency Provider Emergency Medicine; Family Provider Family Medicine; PCP Family Medicine; Visit Provider Student in an Organized Health Care Education/Training Program
DX: T43.592A Poisoning by other antipsychotics and neuroleptics, intentional self-harm, initial encounter (principal); G92 Toxic encephalopathy; M62.82 Rhabdomyolysis; F10.231 Alcohol dependence with withdrawal delirium; I45.81 Long QT syndrome; Z78.1 Physical restraint status; Y90.8 Blood alcohol level of 240 mg/100 ml or more; T43.212A Poisoning by selective serotonin and norepinephrine reuptake inhibitors, intentional self-harm, initial encounter; T51.0X2A Toxic effect of ethanol, intentional self-harm, initial encounter; Z91.5 Personal history of self-harm; F41.8 Other specified anxiety disorders
CPT/HCPCS: 36415; 70450; 71045; 72125; 73130; 80048; 80053; 80307; 80320; 80329; 81001; 82550; 83605; 83735; 84484; 85025; 93005; 94770; 99285; J7030; A4216; G0480